=== PATIENT | female | born 1990 | race African-American/Black ===

== ENCOUNTER 2017-03-14 07:15 | Emergency (ER) | payer MEDICAID ==
[2017-03-14 07:27] VITALS: BP 129/78
--- NOTE | 2017-03-14 08:13 | UC ---
Complaint Female HPI - HPI Summary HPI Summary: ONSET OF URINARY BURNING, FREQUENCY AND URGENCY LAST NIGHT. NO NAUSEA, FEVER OR BACK PAIN. DENIES ANY POSSIBILITY OF . PT HAS NEXPLANON. - History Of Current Complaint Chief Complaint: UCGU Stated Complaint: URINARY ISSUE Time Seen by Provider: 03/14/17 07:51 Hx Obtained From: Patient Hx Last Menstrual Period: depo Onset/Duration: Gradual Onset, Lasting Hours, Still Present Timing: Constant Severity Initially: Moderate Severity Currently: Moderate Pain Intensity: 7 Pain Scale Used: 0-10 Numeric Character: Burning Aggravating Factor(s): Urination Alleviating Factor(s): Nothing Associated Signs And Symptoms: Negative: Fever, Back Pain, Vaginal Bleeding/ Discharge, Vaginal Discharge, Nausea, Vomiting(# Of Episodes =), Genital Swelling, Genital Blisters - Allergies/Home Medications Allergies/Adverse Reactions: Allergies Allergy/AdvReac Type Severity Reaction Status Date / Time No Known Allergies Allergy Verified 03/14/17 07:29 PMH/Surg Hx/FS Hx/Imm Hx Previously Healthy: Yes - Surgical History Surgical History: Yes Surgery Procedure, Year, and Place: - Family History Known Family History: Positive: Other - Hx Kidney stones in mother Negative: Hypertension - Social History Alcohol Use: None Substance Use Type: None Smoking Status (MU): Never Smoked Tobacco Review of Systems Constitutional: Negative Respiratory: Negative Cardiovascular: Negative Gastrointestinal: Abdominal Pain Genitourinary: Dysuria, Frequency, Urgency All Other Systems Reviewed And Are Negative: Yes Physical Exam Triage Information Reviewed: Yes Appearance: Well-Appearing, No Pain Distress, Well-Nourished Vital Signs: Initial Vital Signs Temp 97.1 F 03/14/17 07:22 Pulse 87 03/14/17 07:22 Resp 18 03/14/17 07:22 BP 129/78 03/14/17 07:22 Pulse Ox 100 03/14/17 07:22 Vital Signs Reviewed: Yes Eyes: Positive: Conjunctiva Clear ENT: Positive: Hearing grossly normal Neck: Positive: Supple Respiratory: Positive: No respiratory distress, No accessory muscle use Cardiovascular: Positive: Pulses Normal Abdomen Description: Positive: Nontender, Soft. Negative: CVA Tenderness (R), CVA Tenderness (L), Distended, Guarding Musculoskeletal: Positive: No Edema Neurological: Positive: Alert Psychological: Positive: Age Appropriate Behavior Skin: Negative: rashes Diagnostics - Laboratory Diagnostic Studies Completed/Ordered: URINE DIP SP. GR. 1.030, 1+ LEUKS, 3+ BLOOD, 3+ PROTEIN, 1+ BILI Complaint Female Dx - Differential Dx/Diagnosis Provider Diagnoses: UTI Discharge - Discharge Plan Condition: Stable Disposition: HOME Prescriptions: Phenazopyridine TAB* [Pyridium TAB*] 200 mg PO TID #6 tab Sulfamethox/Trimethoprim DS* [Bactrim DS 800/160 TAB*] 1 tab PO BID #10 tab Patient Education Materials: Urinary Tract Infection in Women (ED) Referrals: Estuardo Cobb MD [Primary Care Provider] - If Needed
--- NOTE | 2017-03-15 15:02 | UC ---
Progress - Progress Note Progress Note: urine culture neg final no change Raphael 03/15/2017
== END 2017-03-14 08:22 | disposition home or self-care (01) ==
LOC: UCEAST 07:15
DX: N39.0 Urinary tract infection, site not specified (principal)
CPT/HCPCS: 81003; 87086; 99212; G0463

== ENCOUNTER 2017-12-04 15:53 | Emergency (ER) | payer OTHER ==
[2017-12-04 16:01] VITALS: BP 118/69
--- NOTE | 2017-12-04 16:05 | UC ---
Complaint Female HPI - HPI Summary HPI Summary: 27 yo female presents with feeling vaginal "discomfort" for the last 2 days. She is unable to describe this feeling beyond a "discomfort" that feels external. She had intercourse about 10 days ago, but used condoms. She was on an implanted control up until 1 month ago when she had it removed because she no longer wanted it. Denies fever, chills, abdominal pain, n/v/d/c, dysuria , flank pain, hematuria, vaginal odor/itching/discharge. - History Of Current Complaint Chief Complaint: UCGU Stated Complaint: UTI Time Seen by Provider: 12/04/17 16:05 Hx Obtained From: Patient Hx Last Menstrual Period: 11/07/17 Onset/Duration: Sudden Onset Severity Currently: None Pain Intensity: 0 - Allergies/Home Medications Allergies/Adverse Reactions: Allergies Allergy/AdvReac Type Severity Reaction Status Date / Time No Known Allergies Allergy Verified 12/04/17 16:01 Home Medications: Home Medications NK [No Home Medications Reported] 12/04/17 [History Confirmed 12/04/17] PMH/Surg Hx/FS Hx/Imm Hx - Additional Past Medical History Additional PMH: None - Surgical History Surgical History: Yes Surgery Procedure, Year, and Place: - Family History Known Family History: Positive: Other - Hx Kidney stones in mother Negative: Hypertension - Social History Occupation: Employed Full-time Lives: With Family Alcohol Use: None Substance Use Type: None Smoking Status (MU): Never Smoked Tobacco Review of Systems Constitutional: Negative Skin: Negative Respiratory: Negative Cardiovascular: Negative Gastrointestinal: Negative Genitourinary: Vaginal/Penile Pain Motor: Negative Neurovascular: Negative Psychological: Negative All Other Systems Reviewed And Are Negative: Yes Physical Exam - Summary Physical Exam Summary: GENERAL: NAD. WDWN. No pain distress. SKIN: No rashes, sores, lesions, or open wounds. NECK: Supple. Nontender. No lymphadenopathy. CHEST: CTAB. No r/r/w. No accessory muscle use. Breathing comfortably and in no distress. CV: RRR. Without m/r/g. Pulses intact. Cap refill <2seconds ABDOMEN: Soft. NTTP. No distention or guarding. No CVA tenderness. Bowel sounds present NEURO: Alert. PSYCH: Age appropriate behavior. Triage Information Reviewed: Yes Vital Signs: Initial Vital Signs Temp 98 F 12/04/17 15:58 Pulse 105 12/04/17 15:58 Resp 16 12/04/17 15:58 BP 118/69 12/04/17 15:58 Pulse Ox 98 12/04/17 15:58 Laboratory Tests 12/04/17 12/04/17 16:11 16:18 POC Urine Color Dark yellow POC Urine Clarity Slightly cloudy POC Urine pH 6.0 POC Ur Specif [place] >= 1.030 POC Urine Protein Trace A POC Ur Glucose (UA) Negative POC Urine Ketones Trace A POC Urine Blood Negative POC Urine Nitrite Negative POC Urine Bilirubin Negative POC Urine Urobilinogen 0.2 POC U Leukocyte Esteras Negative POC Ur Test Negative Vital Signs Reviewed: Yes Complaint Female Dx - Course Course Of Treatment: UA and preg were negative. I recommended that she have a pelvic exam, but pt declined and [facility] - Differential Dx/Diagnosis Provider Diagnoses: Vaginal discomfort Discharge - Sign-Out/Discharge Documenting (check all that apply): Patient Departure All imaging exams completed and their final reports reviewed: No Studies - Discharge Plan Condition: Stable Disposition: HOME Referrals: Estuardo Cobb MD [Primary Care Provider] - Additional Instructions: If you develop a fever, shortness of breath, chest pain, new or worsening symptoms - please call your PCP or go to the ED. 1) [facility] or return to the urgent care if your symptoms persist - Billing Disposition and Condition Condition: STABLE Disposition: Home
== END 2017-12-04 16:34 | disposition home or self-care (01) ==
LOC: UCEAST 15:53
DX: R10.2 Pelvic and perineal pain (principal)
CPT/HCPCS: 81003; 84702; 99211; G0463

== ENCOUNTER 2017-12-27 09:41 | Emergency (ER) | payer OTHER ==
[2017-12-27 09:50] VITALS: BP 119/61
--- NOTE | 2017-12-27 09:58 | UC ---
Complaint Female HPI - HPI Summary HPI Summary: 27 y/o female presents to the urgent care c/o frequency and burning on urination for the past 3 weeks. Patient reports she was seen here at the clinic about 3 weeks ago and was diagnosed with a vaginal discomfort and was not prescribed anything. Pt states she has a mild vaginal discharge. Pain is intermittent w/ urination 05/30. Pt denies lower back pain, pelvic pain, Hx of STD's, flank pain, abdominal pain, N/V/D. LMP: 12/08/2017 and does not take any OCP. - History Of Current Complaint Chief Complaint: UCGU Stated Complaint: URINARY COMPLAINT Time Seen by Provider: 12/27/17 09:56 Hx Obtained From: Patient Hx Last Menstrual Period: 12/08/2017 Onset/Duration: Gradual Onset, Lasting Weeks - 3 weeks, Worse Since - 1 week Timing: Intermittent, Lasting Weeks - 3 weeks Severity Initially: Mild Severity Currently: Mild Pain Intensity: 3 Pain Scale Used: 0-10 Numeric Character: Burning Aggravating Factor(s): Urination Associated Signs And Symptoms: Positive: Negative. Negative: Fever, Back Pain, Vaginal Bleeding/Discharge, Vaginal Discharge, Nausea, Vomiting(# Of Episodes =) , Genital Swelling, Genital Blisters - Risk Factors Ectopic Risk Factor: Negative Ovarian Torsion Risk Factor: Negative - Allergies/Home Medications Allergies/Adverse Reactions: Allergies Allergy/AdvReac Type Severity Reaction Status Date / Time No Known Allergies Allergy Verified 12/27/17 09:50 PMH/Surg Hx/FS Hx/Imm Hx Previously Healthy: Yes - Pt denies PMHX - Surgical History Surgical History: Yes Surgery Procedure, Year, and Place: - Family History Known Family History: Negative: Hypertension Family History: Hx Kidney stones in mother - Social History Alcohol Use: None Substance Use Type: None Smoking Status (MU): Never Smoked Tobacco Review of Systems Constitutional: Negative Skin: Negative Eyes: Negative ENT: Negative Respiratory: Negative Cardiovascular: Negative Gastrointestinal: Negative Genitourinary: Dysuria, Frequency, Urgency, Vaginal/Penile Discharge - mild Motor: Negative Neurovascular: Negative Musculoskeletal: Negative Neurological: Negative Psychological: Negative Is Patient Immunocompromised?: No All Other Systems Reviewed And Are Negative: Yes Physical Exam - Summary Physical Exam Summary: Vital signs: reviewed General: well developed, well nourished female sitting in the examining table w /o any acute distress. Head: Normocephalic, no lesions. Eyes: PERRLA, EOM's full, conjunctiva clear, fundi grossly normal. Ears: EAC's clear, TM's normal. Nose: Mucosa normal, no obstruction. Throat: Clear, no exudates, no lesions. Neck: Supple, no masses, no thyromegaly, no bruits. Chest: Lungs clear, no rales, no rhonchi, no wheezes. Heart: RR, no murmurs, no rubs, no gallops. Abdomen: Soft, no tenderness, no masses, BS normal. Pelvic: I was assited by Nurse Tasneem. External genitalia within normal limits. There is no lesions there is no masses noted. Speculum exam: The vaginal jordan are within normal limits w/ normal white vaginal discharge w/ fishy odor, no the lesions or rashes. The cervix is closed with no lesions or masses. There is no CMT's, and no adnexal masses. Sample sent to Lab for G/C and Affirm panel. Rectal: No lesions, no hemorrhoids, Back: Normal curvature, no tenderness. Extremities: FROM, no deformities, no edema, no erythema. Neuro: Physiological, no localizing findings. Skin: Normal, no rashes, no lesions noted. Triage Information Reviewed: Yes Vital Signs: Initial Vital Signs Temp 98.2 F 12/27/17 09:45 Pulse 67 12/27/17 09:45 Resp 18 12/27/17 09:45 BP 119/61 12/27/17 09:45 Pulse Ox 99 12/27/17 09:45 Complaint Female Dx - Course Course Of Treatment: 27 y/o female presents to the urgent care c/o frequency and burning on urination for the past 3 weeks. Patient reports she was seen here at the clinic about 3 weeks ago and was diagnosed with a vaginal discomfort and was not prescribed anything. Pt states she has a mild vaginal discharge. Pain is intermittent w/ urination 05/30. Pt denies lower back pain, pelvic pain, Hx of STD's, flank pain, abdominal pain, N/V/D. LMP: 12/08/2017 and does not take any OCP.Hx obtained. UA ordere: +2 blood and 2+leukoesteraces. Pt with Bacterial vaginosis on pelvic examination. Pt Rx Metronidazole vaginal cream. Pt probably also w/ UTI. Pt Rx Nitrofurantoin PO as directed below for UTI. Pt educated on STD's. Advised to f/u with [facility] for PAP. Specimen were sent to lab and urine culture, Advised she will be notified if any abnormal result from lab. Pt understood and agreed with plan of care. - Differential Dx/Diagnosis Differential Diagnosis/HQI/PQRI: Cervicitis, Pelvic Inflammatory Disease, , Renal Colic, Sexually Transmitted Disease, Ureteral Stone, Urinary Tract Infection Provider Diagnoses: 1- UTI. 2-Dysuria. 3- Bacterial Vaginosis. 4- Screening for STD's Discharge - Sign-Out/Discharge Documenting (check all that apply): Patient Departure - D/c home All imaging exams completed and their final reports reviewed: No Studies - Discharge Plan Condition: Stable Disposition: HOME Prescriptions: metroNIDAZOLE VAGINAL 0.75%* 1 applic VAGINAL BEDTIME #1 lesa Nitrofurantoin Macrocrystals* [Macrodantin 100 mg*] 100 mg PO BID #10 cap Phenazopyridine TAB* [Pyridium 100 mg TAB*] 100 mg PO TID #6 tab Patient Education Materials: Bacterial Vaginosis (ED), Urinary Tract Infection in Women (ED) Referrals: Estuardo Cobb MD [Primary Care Provider] - 3 Days Additional Instructions: 1- Please take Nitrofurantoin 100mg PO x 7 days. Pyridium 100 mg PO TID x 2 days to alleviate urinary symptoms. Increase increase fluid intake. drink cranberry juice. 2- apply Metrogel as directed t alleviates vaginal discharge 3-Urine sent for culture and speciment sent to lab to r/o any abnormality, you will be notified for further treatment. 4-If symptoms do not improve please return to the urgent care or f/u with [facility] or PCP in 3 days for further management - Billing Disposition and Condition Condition: STABLE Disposition: Home
--- NOTE | 2017-12-28 08:29 | UC ---
- Progress Note Progress Note: Vaginal cultures from December 27, 2017 come back for a positive Gardnerella and positive Trichomonas. The patient is on metronidazole vaginal for 5 days and also Macrobid. The treatment for Trichomonas is Flagyl by mouth. Either 2 g as a single dose or 500 mg twice a day for 7 days. Also sexual partners need to be treated. Nursing to call patient and let them know of the findings and that I have sent a prescription for Flagyl 500 mg by mouth twice a day 7 days to her pharmacy. Also the need to inform sexual partners so that they can be evaluated and treated. Discharge - Sign-Out/Discharge Documenting (check all that apply): Patient Departure All imaging exams completed and their final reports reviewed: No Studies - Discharge Plan Condition: Stable Disposition: HOME Prescriptions: metroNIDAZOLE [Flagyl] 500 mg PO BID #14 tablet metroNIDAZOLE VAGINAL 0.75%* 1 applic VAGINAL BEDTIME #1 lesa Nitrofurantoin Macrocrystals* [Macrodantin 100 mg*] 100 mg PO BID #10 cap Phenazopyridine TAB* [Pyridium 100 mg TAB*] 100 mg PO TID #6 tab Patient Education Materials: Bacterial Vaginosis (ED), Urinary Tract Infection in Women (ED) Referrals: Estuardo Cobb MD [Primary Care Provider] - 3 Days Additional Instructions: 1- Please take Nitrofurantoin 100mg PO x 7 days. Pyridium 100 mg PO TID x 2 days to alleviate urinary symptoms. Increase increase fluid intake. drink cranberry juice. 2- apply Metrogel as directed t alleviates vaginal discharge 3-Urine sent for culture and speciment sent to lab to r/o any abnormality, you will be notified for further treatment. 4-If symptoms do not improve please return to the urgent care or f/u with [facility]NA[facility] or PCP in 3 days for further management - Billing Disposition and Condition Condition: STABLE Disposition: Home
--- NOTE | 2017-12-28 16:11 | UC ---
- Progress Note Progress Note: please notify pt that she does not have a UTI stop macrodantin Discharge - Sign-Out/Discharge Documenting (check all that apply): Patient Departure, Post-Discharge Follow Up All imaging exams completed and their final reports reviewed: No Studies - Discharge Plan Condition: Stable Disposition: HOME Prescriptions: metroNIDAZOLE [Flagyl] 500 mg PO BID #14 tablet metroNIDAZOLE VAGINAL 0.75%* 1 applic VAGINAL BEDTIME #1 lesa Nitrofurantoin Macrocrystals* [Macrodantin 100 mg*] 100 mg PO BID #10 cap Phenazopyridine TAB* [Pyridium 100 mg TAB*] 100 mg PO TID #6 tab Patient Education Materials: Bacterial Vaginosis (ED), Urinary Tract Infection in Women (ED) Referrals: Estuardo Cobb MD [Primary Care Provider] - 3 Days Additional Instructions: 1- Please take Nitrofurantoin 100mg PO x 7 days. Pyridium 100 mg PO TID x 2 days to alleviate urinary symptoms. Increase increase fluid intake. drink cranberry juice. 2- apply Metrogel as directed t alleviates vaginal discharge 3-Urine sent for culture and speciment sent to lab to r/o any abnormality, you will be notified for further treatment. 4-If symptoms do not improve please return to the urgent care or f/u with [facility] or PCP in 3 days for further management - Billing Disposition and Condition Condition: STABLE Disposition: Home
== END 2017-12-27 10:45 | disposition home or self-care (01) ==
LOC: UCEAST 09:41
DX: N39.0 Urinary tract infection, site not specified (principal); R30.0 Dysuria; N76.0 Acute vaginitis; Z11.3 Encounter for screening for infections with a predominantly sexual mode of transmission; B96.89 Other specified bacterial agents as the cause of diseases classified elsewhere
CPT/HCPCS: 81003; 84702; 87086; 87480; 87491; 87510; 87591; 87660; 99212; G0463

== ENCOUNTER 2018-01-15 12:33 | Emergency (ER) | payer OTHER ==
--- NOTE | 2018-01-15 15:46 | RAD ---
HISTORY: cp COMPARISONS: December 12, 2014 VIEWS: 4: Frontal dual-energy and lateral views of the chest. FINDINGS: CARDIOMEDIASTINAL SILHOUETTE: The cardiomediastinal silhouette is normal. AIRAM: The airam are normal. PLEURA: The costophrenic angles are sharp. No pleural abnormalities are noted. LUNG PARENCHYMA: The lungs are clear. ABDOMEN: The upper abdomen is clear. There is no subphrenic gas. BONES AND SOFT TISSUES: No bone or soft tissue abnormalities are noted. OTHER: None. IMPRESSION: NO ACTIVE CARDIOPULMONARY DISEASE.
[2018-01-15 16:17] LABS: ABS Basophils 0 10^3/ul (0-0.2); ABS Eosinophils 0.2 10^3/ul (0-0.6); ABS Lymphocytes 1.4 10^3/ul (1.0-4.8); ABS Monocytes 0.4 10^3/ul (0-0.8); ABS Neutrophils 5.1 10^3/ul (1.5-7.7); ABS Nucleated RBC 0 10^3/ul; Eosinophil % 2.1 % (0-6); Hematocrit 38 % (35-47); Hemoglobin 12.6 g/dl (12.0-16.0); Lymphocyte % 19.8 % (25-47); Mean Corpuscular HGB Conc 33 g/dl (31-36); Mean Corpuscular Hemoglobin 31 pg (27-31); Mean Corpuscular Volume 94 fL (80-97); Mean Platelet Volume 9.1 um3 (7.4-10.4); Nucleated Red Blood Cells % 0.1; Platelet Count 240 10^3/ul (150-450); Red Blood Count 4.06 10^6/ul (4.00-5.40); Red Cell Distribution Width 13 % (10.5-15); White Blood Count 7.2 10^3/ul (3.5-10.8)
[2018-01-15 16:41] LABS: INR 1.05 (0.77-1.02)
[2018-01-15] MEDS ORDERED: Ibuprofen TAB* 400 MG PO ONE (16:51)
[2018-01-15 17:05] VITALS: BP 150/70
--- NOTE | 2018-01-15 17:11 | ED ---
HPI Chest Pain - HPI Summary HPI Summary: Patient is a 27 y/o F w/ c/o left sided chest pain with radiation to back onsetting last night. She notes pain is aggravated by breathing. Patient states she does not take blood thinners, denies alcohol/drug usage and smoking. No other PMHx is noted. On triage, pain is rated 10/10, breaths are noted to aggravate pain, nothing is reported to alleviate Sx. Home medications and allergies are reviewed. - History of Current Complaint Chief Complaint: EDChestWallPain Time Seen by Provider: 01/15/18 15:54 Hx Obtained From: Patient Hx Last Menstrual Period: 12/08/2017 Onset/Duration: Started Days Ago - onset last night, Traumatic Timing: Constant, Lasting Days - onset last night Current Severity: Severe - 10/10 Pain Intensity: 10 Pain Scale Used: 0-10 Numeric - 10/10 Chest Pain Location: Discrete at: - left side Chest Pain Radiates: Yes Chest Pain Radiates To:: Back Aggravating Factor(s): Other: - breaths Alleviating Factor(s): Nothing Associated Signs and Symptoms: Positive: Chest Pain - Allergy/Home Medications Allergies/Adverse Reactions: Allergies Allergy/AdvReac Type Severity Reaction Status Date / Time No Known Allergies Allergy Verified 01/15/18 13:32 PMH/Surg Hx/FS Hx/Imm Hx Endocrine/Hematology History: Denies: Hx Diabetes, Hx Thyroid Disease Cardiovascular History: Denies: Hx Hypertension, Other Cardiovascular Problems/Disorders Respiratory History: Denies: Hx Asthma, Hx Chronic Obstructive Pulmonary Disease (COPD) GI History: Denies: Hx Ulcer - Surgical History Surgery Procedure, Year, and Place: Infectious Disease History: No Infectious Disease History: Denies: Hx Clostridium Difficile, Hx Hepatitis, Hx Human Immunodeficiency Virus (HIV), Hx of Known/Suspected MRSA, Hx Shingles, Hx Tuberculosis, Hx Known/ Suspected VRE, Hx Known/Suspected VRSA, History Other Infectious Disease, Traveled Outside the [place] in Last 30 Days - Family History Known Family History: Positive: Other - Hx Kidney stones in mother Negative: Hypertension Family History: Hx Kidney stones in mother - Social History Alcohol Use: None Substance Use Type: Reports: None Smoking Status (MU): Never Smoked Tobacco Review of Systems Negative: Fever - on vitals, temp is 98.9 F Positive: Chest Pain All Other Systems Reviewed And Are Negative: Yes Physical Exam - Summary Physical Exam Summary: Appearance: Well appearing, no pain distress Skin: warm, dry, reflects adequate perfusion Head/face: normal Eyes: EOMI, JULIA ENT: normal Neck: supple, non-tender Respiratory: CTA, breath sounds present Cardiovascular: RRR, pulses symmetrical Abdomen: non-tender, soft Bowel: present Musculoskeletal: tenderness over left chest, strength/ROM intact Neuro: normal, sensory motor intact, A&Ox3 Triage Information Reviewed: Yes Vital Signs On Initial Exam: Initial Vitals Temp Pulse Resp BP Pulse Ox 98.9 F 78 16 106/61 100 01/15/18 13:29 01/15/18 13:29 01/15/18 13:29 01/15/18 13:29 01/15/18 13:29 Vital Signs Reviewed: Yes Diagnostics - Vital Signs Vital Signs Temp Pulse Resp BP Pulse Ox 01/15/18 13:29 98.9 F 78 16 106/61 100 - Laboratory Lab Results: Lab Results 01/15/18 01/15/18 01/15/18 Range/Units 16:09 16:09 16:09 WBC 7.2 (3.5-10.8) 10^3/ul RBC 4.06 (4.00-5.40) 10^6/ul Hgb 12.6 (12.0-16.0) g/dl Hct 38 (35-47) % MCV 94 (80-97) fL MCH 31 (27-31) pg MCHC 33 (31-36) g/dl RDW 13 (10.5-15) % Plt Count 240 (150-450) 10^3/ul MPV 9.1 (7.4-10.4) um3 Neut % (Auto) 71.5 (38-83) % Lymph % (Auto) 19.8 L (25-47) % Tift % (Auto) 6.1 (0-7) % Eos % (Auto) 2.1 (0-6) % Baso % (Auto) 0.5 (0-2) % Absolute Neuts (auto) 5.1 (1.5-7.7) 10^3/ul Absolute Lymphs (auto) 1.4 (1.0-4.8) 10^3/ul Absolute Monos (auto) 0.4 (0-0.8) 10^3/ul Absolute Eos (auto) 0.2 (0-0.6) 10^3/ul Absolute Basos (auto) 0 (0-0.2) 10^3/ul Absolute Nucleated RBC 0 10^3/ul Nucleated RBC % 0.1 INR (Anticoag Therapy) 1.05 H (0.77-1.02) APTT 31.0 (26.0-36.3) seconds D-Dimer, Quantitative < 200 (Less Than 230) ng/mL Sodium 135 (135-145) mmol/L Potassium 3.8 (3.5-5.0) mmol/L Chloride 102 (101-111) mmol/L Carbon Dioxide 27 (22-32) mmol/L Anion Gap 6 (2-11) mmol/L BUN 6 (6-24) mg/dL Creatinine 0.89 (0.51-0.95) mg/dL Est GFR ( Amer) 90.7 (>60) Est GFR (Non-Af Amer) 75.0 (>60) BUN/Creatinine Ratio 6.7 L (8-20) Glucose 120 H (70-100) mg/dL Calcium 9.2 (8.6-10.3) mg/dL Total Bilirubin 0.60 (0.2-1.0) mg/dL AST 16 (13-39) U/L ALT 13 (7-52) U/L Alkaline Phosphatase 77 (34-104) U/L Troponin I 0.00 (<0.04) ng/mL Total Protein 8.0 (6.4-8.9) g/dL Albumin 4.0 (3.2-5.2) g/dL Globulin 4.0 (2-4) g/dL Albumin/Globulin Ratio 1.0 (1-3) Beta HCG, Quant < 0.60 mIU/mL Result Diagrams: 01/15/18 16:09 01/15/18 16:09 Lab Statement: Any lab studies that have been ordered have been reviewed, and results considered in the medical decision making process. - Radiology CXR Radiology Interpretation Completed By: Radiologist Summary of Radiographic Findings: CXR showed no active cardiopulmonary disease. This report was reviewed by ED physician. - EKG 1609 Cardiac Rate: NL - rate of 76 BPM EKG Rhythm: Sinus Rhythm Summary of EKG Findings: no acute changes Re-Evaluation - Re-Evaluation First Eval Re-Evaluation Time: 18:06 Comment: Results of labs and tests were discussed, patient is agreeable with discharge. Chest Pain Course/Dx - Course Course Of Treatment: Patient is a 27 y/o F w/ c/o left sided chest pain with radiation to back onsetting last night. She notes pain is aggravated by breathing. Patient states she does not take blood thinners, denies alcohol/drug usage and smoking. No other PMHx is noted. On physical exam, patient is noted to have left sided chest tenderness. During ED course, patient received Motrin 800 mg. CXR showed no active cardiopulmonary disease. EKG showed sinus rhythm with rate of 76 BPM. Bloodwork obtained. Results of labs and tests were discussed, patient is agreeable with discharge. Dx of chest wall pain. - Chest Pain Differential Diagnosis/HQI/PQRI: Acute NE, Chest Wall, Lower Respiratory Infection, Pulmonary Embolism - Diagnoses Provider Diagnoses: Chest wall pain Discharge - Sign-Out/Discharge Documenting (check all that apply): Patient Departure - discharge - Discharge Plan Condition: Stable Disposition: HOME Prescriptions: Ibuprofen TAB* [Motrin TAB* 600 MG] 600 mg PO Q8H PRN #20 tab MDD 3 PRN Reason: Pain Patient Education Materials: Chest Wall Pain (ED) Referrals: Estuardo Cobb MD [Primary Care Provider] - 3 Days Additional Instructions: RETURN TO ED FOR ANY NEW OR WORSENING SYMPTOMS. FOLLOW UP WITH PRIMARY CARE PHYSICIAN IN THREE DAYS. - Billing Disposition and Condition Condition: STABLE Disposition: Home - Attestation Statements Document Initiated by Eusebio: Yes Documenting Scribe: Arnulfo Verduzco Provider For Whom Eusebio is Documenting (Include Credential): Go Coffman MD Scribe Attestation: Arnulfo Collins , scribed for Go Coffman MD on 01/15/18 at 1751. Scribe Documentation Reviewed: Yes Provider Attestation: The documentation as recorded by the Arnulfo lacey accurately reflects the service I personally performed and the decisions made by me, Go Coffman MD
== END 2018-01-15 17:37 | disposition home or self-care (01) ==
LOC: ED 12:33
DX: R07.89 Other chest pain (principal); Z84.1 Family history of disorders of kidney and ureter
CPT/HCPCS: 36415; 71046; 80053; 84484; 84702; 85025; 85379; 85610; 85730; 93005; 99283; A9270-GY

== ENCOUNTER 2018-02-25 09:40 | Emergency (ER) | payer OTHER ==
--- OUTSIDE RECORDS SUMMARY | 2018-02-25 09:45 | XMS REPORT | Continuity of Care Document ---
:1990 External Reference #:[id number] Author Name Shikha Woodard Care Team Providers Name Role Phone Estuardo Cobb MD Primary Care Physician Unavailable Payers Type Date Identification Numbers Payment Provider Subscriber Effective: Policy Number: [id number] [employer] Krystle Breaux 2013 Medicaid PayID: [id number] [address] [address] [place] [address] Advance Directives Description No Information Available Problems Date Description Provider Status Onset: 02/01/2014 Morbid obesity Daria Katz M.D. Active Onset: 02/01/2014 Impairment level: low vision of both Daria Katz M.D. 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 Tobacco Use Start: Unknown Never Smoked Cigarettes Smoking Status Reviewed: 02/04/18 Never Smoked Cigarettes ETOH Use Denies alcohol use Tobacco Use Start: Unknown Patient has never smoked Recreational Drug Use Denies Drug Use Exercise Type/Frequency Exercises regularly joined [employer] last December Allergies, Adverse Reactions, Alerts Description No Known Drug Allergies Medications Medication Date Status Form Strength Qnty SIG Indications Ordering Provider Phentermine 04/14/ Active Capsules 15mg 30caps 1 tab po qd E66.01 Josh HCL 2017 x14 days, 5 Tobias POLYSOMNOGRAPHY TECHNOLOGIST days off, then 1 tab po qd x14 days, then 5 days off, repeat Proair HFA 04/14/ Active Aerosol 108(90Base 1units 1 puff J45.40 2016 ) mcg/Act every 4 MD Jamir hours as needed for chest tightness or wheezing Montelukast 04/14/ Hx Tablets 10mg 90tabs 1 by mouth J45.40 Josh Sodium 2017 - every day [place], POLYSOMNOGRAPHY TECHNOLOGIST 2017 Lotrisone 02/14/ Hx Cream 1-0.05% 45gm apply to Daria 2013 - area 2x per Sterling, M.D. 2017 Tylenol With / Hx Tablets 300-30mg 15tabs 1 tab by Unknown Codeine #3 0000 - mouth every to 6 2016 hours as needed Nexplanon / Hx Implant 68mg 2013 Unknown 0000 - 2017 Immunizations Description No Information Available Vital Signs Date Vital Result Comment 02/04/2018 10:50am Height 60.25 inches 5'0.25" Weight 263.38 lb Heart Rate 74 /min BP Systolic 110 mmHg BP Diastolic 98 mmHg Body Temperature 98.1 F O2 % BldC Oximetry 99 % BMI (Body Mass Index) 51.0 kg/m2 04/14/2016 1:09pm Height 60.25 inches 5'0.25" Weight 270.00 lb Heart Rate 82 /min BP Systolic Sitting 104 mmHg BP Diastolic Sitting 76 mmHg Body Temperature 98.1 F O2 % BldC Oximetry 97 % BMI (Body Mass Index) 52.3 kg/m2 03/14/2016 1:54pm Height 60.25 inches 5'0.25" Weight 271.00 lb Heart Rate 80 /min BP Systolic Sitting 128 mmHg BP Diastolic Sitting 64 mmHg Body Temperature 98.0 F O2 % BldC Oximetry 100 % BMI (Body Mass Index) 52.5 kg/m2 01/24/2014 2:10pm Height 60 inches 5'0" Weight 257.00 lb Heart Rate 76 /min BP Systolic Sitting 122 mmHg BP Diastolic Sitting 84 mmHg BMI (Body Mass Index) 50.2 kg/m2 Results Test Date Facility Test Result H/L Range Note GC/Chlamydia 02/04/2018 [facility] [place] Chlamydia Negative Negative 1 Amplified Rna [address] [place] [address] [phone] Neisseria gonorrhoeae (GC) Rna Negative Negative Laboratory 02/04/2018 [facility] [place] Trichomonas Negative Negative 2 test finding [address] [place] [address] [phone] Laboratory 02/04/2018 [facility] [place] Gardnerella/Yea SEE RESULT 3, [address]: [place] [address] [phone] Laboratory 01/15/2018 [facility] [place] Troponin-I 0.00 ng/mL <0.04 test finding (TnI) [place] [address] [phone] HCG < 0.60 mIU/mL 5 Comp Metabolic Panel 01/15/2018 [facility] [place] Sodium 135 mmol/L N 135-145 [place] [address] [phone] Potassium 3.8 mmol/L N 3.5-5.0 Chloride 102 mmol/L N 101-111 Co2 Carbon Dioxide 27 mmol/L N 22-32 Anion Gap 6 mmol/L N 2-11 Glucose 120 mg/dL High 70-100 Blood Urea Nitrogen 6 mg/dL N 6-24 Creatinine 0.89 mg/dL N 0.51-0.95 BUN/Creatinine Ratio 6.7 Low 8-20 Calcium 9.2 mg/dL N 8.6-10.3 Total Protein 8.0 g/dL N 6.4-8.9 Albumin 4.0 g/dL N 3.2-5.2 Globulin 4.0 g/dL N 2-4 Albumin/Globulin Ratio 1.0 N 1-3 Total Bilirubin 0.60 mg/dL N 0.2-1.0 Alkaline Phosphatase 77 U/L N 34-104 Alt 13 U/L N 7-52 Ast 16 U/L N 13-39 Egfr Non- 75.0 >60 Egfr 90.7 >60 6 Inr/Protime 01/15/2018 [facility] [place] Inr 1.05 High 0.77-1.02 [place] [address] [phone] Laboratory test 01/15/2018 [facility] [place] Partial 31.0 N 26.0- 36.3 [place] [address] Time PTT [phone] D Dimer Quantitative < 200 ng/mL N Less Than 230 7 CBC Auto Diff 01/15/2018 [facility] [place] White Blood 7.2 10^3/uL N 3.5-10.8 [place] [address] [phone] Red Blood Count 4.06 10^6/uL N 4.00-5.40 Hemoglobin 12.6 g/dL N 12.0-16.0 Hematocrit 38 % N 35-47 Mean Corpuscular Volume 94 fL N 80-97 Mean Corpuscular Hemoglobin 31 pg N 27-31 Mean Corpuscular HGB Conc 33 g/dL N 31-36 Red Cell Distribution Width 13 % N 10.5-15 Platelet Count 240 10^3/uL N 150-450 Mean Platelet Volume 9.1 um3 N 7.4-10.4 Abs Neutrophils 5.1 10^3/uL N 1.5-7.7 Abs Lymphocytes 1.4 10^3/uL N 1.0-4.8 Abs Monocytes 0.4 10^3/uL N 0-0.8 Abs Eosinophils 0.2 10^3/uL N 0-0.6 Abs Basophils 0 10^3/uL N 0-0.2 Abs Nucleated RBC 0 10^3/uL Granulocyte % 71.5 % N 38-83 Lymphocyte % 19.8 % Low 25-47 Monocyte % 6.1 % N 0-7 Eosinophil % 2.1 % N 0-6 Basophil % 0.5 % N 0-2 Nucleated Red Blood Cells % 0.1 Poc Urinalysis 12/27/2017 [facility] [place] Poc Glucose, Negative Negative [address] [place] [address] [phone] Poc Bilirubin, Urine Negative Negative Poc Ketone, Urine Negative Negative Poc Specific [place], Urine 1.020 N 1.010-1.030 Poc Blood, Urine 2+ Abnormal Negative Poc pH, Urine 7.0 N 5-9 Poc Protein, Urine Trace Abnormal Negative Poc Urobilinogen, Urine 0.2 Negative Poc Nitrite, Urine Negative Negative Poc Leukocytes, Urine 2+ Abnormal Negative Poc Color, Urine Yellow Poc Clarity, Urine Cloudy 8 Laboratory test 12/27/2017 [facility] [place] Poc , Negative Negative [address] [place] [address] [phone] Urine Culture 12/27/2017 [facility] [place] Urine Culture SEE RESULT 10, And [address] BELOW 11 [place] [address] [phone] GC/Chlamydia 12/27/2017 [facility] [place] Chlamydia Negative Negative 12 Amplified Rna [address] [place] [address] Rna [phone] Neisseria gonorrhoeae (GC) Rna Negative Negative Laboratory 12/27/2017 [facility] [place] Gardnerella/Yeast: SEE RESULT 13, test finding [address] Vaginal Dna BELOW 14 [place] [address] [phone] Laboratory 12/04/2017 [facility] [place] Poc , Urine Negative Negative 15 test finding [address] [place] [address] [phone] Poc 12/04/2017 [facility] [place] Poc Glucose, Urine Negative Negative Urinalysis [address] [place] [address] [phone] Poc Bilirubin, Urine Negative Negative Poc Ketone, Urine Trace Abnormal Negative Poc Specific [place], Urine >=1.030 N 1.010-1.030 Poc Blood, Urine Negative Negative Poc pH, Urine 6.0 N 5-9 Poc Protein, Urine Trace Abnormal Negative Poc Urobilinogen, Urine 0.2 Negative Poc Nitrite, Urine Negative Negative Poc Leukocytes, Urine Negative Negative Poc Color, Urine Dark yellow Poc Clarity, Urine Slightly Cloudy 16 Urine Culture And 03/14/2017 [facility] [place] Urine SEE RESULT 17 , [address] [place] [address] [phone] Poc Urinalysis 03/14/2017 [facility] [place] Poc Negative Negative [address] Glucose, [place] [address] Urine [phone] Poc Bilirubin, Urine 1+ Abnormal Negative Poc Ketone, Urine Negative Negative Poc Specific [place], Urine >=1.030 N 1.010-1.030 Poc Blood, Urine 3+ Abnormal Negative Poc pH, Urine 5.5 N 5-9 Poc Protein, Urine 3+ Abnormal Negative Poc Urobilinogen, Urine 0.2 Negative Poc Nitrite, Urine Negative Negative Poc Leukocytes, Urine 1+ Abnormal Negative Poc Color, Urine Yellow Poc Clarity, Urine Cloudy 19 Laboratory test 03/25/2016 [facility] [place] D Dimer 247 ng/mL High Less [address] Quantitative Than 230 [place], [place] [id number] [phone] Basic Metabolic 03/25/2016 [facility] [place] Sodium 136 N 133-[address] mmol/[place] [address] [phone] Potassium 4.1 mmol/L N 3.5-5.0 Chloride 104 mmol/L N 101-111 Co2 Carbon Dioxide 27 mmol/L N 22-32 Anion Gap 5 mmol/L N 2-11 Glucose 107 mg/dL High 70-100 Blood Urea Nitrogen 7 mg/dL N 6-24 Creatinine 0.81 mg/dL N 0.51-0.95 BUN/Creatinine Ratio 8.6 N 8-20 Calcium 8.4 mg/dL Low 8.6-10.3 Egfr Non- 84.8 N >60 Egfr 109.1 N >60 21 Laboratory test 03/25/2016 [facility] [place] TSH (Thyroid 1.78 mcIU/mL N 0.34-5.[address] Stim [place]orm) [place] [address] [phone] Cortisol 9.39 ?g/dL N 22 CBC Auto Diff 03/25/2016 [facility] [place] White Blood 6.1 10^3/uL N 3.5-10.[address] [place] [address] [phone] Red Blood Count 4.10 10^6/uL N 4.0-5.4 Hemoglobin 12.4 g/dL N 12.0-16.0 Hematocrit 38 % N 35-47 Mean Corpuscular Volume 92 fL N 80-97 Mean Corpuscular Hemoglobin 30 pg N 27-31 Mean Corpuscular HGB Conc 33 g/dL N 31-36 Red Cell Distribution Width 13 % N 10.5-15 Platelet Count 199 10^3/uL N 150-450 Mean Platelet Volume 10 um3 N 7.4-10.4 Abs Neutrophils 3.8 10^3/uL N 1.5-7.7 Abs Lymphocytes 1.8 10^3/uL N 1.0-4.8 Abs Monocytes 0.3 10^3/uL N 0-0.8 Abs Eosinophils 0.1 10^3/uL N 0-0.6 Abs Basophils 0 10^3/uL N 0-0.2 Abs Nucleated RBC 0 10^3/uL N Granulocyte % 62.8 % N 38-83 Lymphocyte % 29.6 % N 25-47 Monocyte % 4.8 % N 1-9 Eosinophil % 2.4 % N 0-6 Basophil % 0.4 % N 0-2 Nucleated Red Blood Cells % 0 N Urinalysis Profile 03/21/2016 [facility] [place] Urine Color Yellow N [address] [place] [address] [phone] Urine Appearance Cloudy N Urine Specific [place] 1.026 N 1.010-1.030 Urine pH 5.0 N 5-9 Urine Urobilinogen Negative N Negative Urine Ketones Negative N Negative Urine Protein Negative N Negative Urine Leukocytes Negative N Negative Urine Blood Negative N Negative Urine Nitrite Negative N Negative Urine Bilirubin Negative N Negative Urine Glucose Negative N Negative CBC Auto Diff 03/21/2016 [facility] [place] White Blood 8.1 10^3/uL N 3.5-10.[address] [place] [address] [phone] Red Blood Count 4.02 10^6/uL N 4.0-5.4 Hemoglobin 12.3 g/dL N 12.0-16.0 Hematocrit 37 % N 35-47 Mean Corpuscular Volume 92 fL N 80-97 Mean Corpuscular Hemoglobin 31 pg N 27-31 Mean Corpuscular HGB Conc 33 g/dL N 31-36 Red Cell Distribution Width 13 % N 10.5-15 Platelet Count 186 10^3/uL N 150-450 Mean Platelet Volume 10 um3 N 7.4-10.4 Abs Neutrophils 5.2 10^3/uL N 1.5-7.7 Abs Lymphocytes 2.2 10^3/uL N 1.0-4.8 Abs Monocytes 0.4 10^3/uL N 0-0.8 Abs Eosinophils 0.2 10^3/uL N 0-0.6 Abs Basophils 0.1 10^3/uL N 0-0.2 Abs Nucleated RBC 0 10^3/uL N Granulocyte % 64.5 % N 38-83 Lymphocyte % 26.8 % N 25-47 Monocyte % 5.5 % N 1-9 Eosinophil % 2.5 % N 0-6 Basophil % 0.7 % N 0-2 Nucleated Red Blood Cells % 0 N Comp Metabolic Panel 03/21/2016 [facility] [place] Sodium 132 mmol/L Low 133-[address] [place] [address] [phone] Chloride 105 mmol/L N 101-111 Co2 Carbon Dioxide 22 mmol/L N 22-32 Glucose 98 mg/dL N 70-100 23 Blood Urea Nitrogen 10 mg/dL N 6-24 24 Creatinine 0.73 mg/dL N 0.51-0.95 25 BUN/Creatinine Ratio 13.7 N 8-20 Calcium 8.3 mg/dL Low 8.6-10.3 26 Total Protein 7.6 g/dL N 6.4-8.9 27 Albumin 3.6 g/dL N 3.2-5.2 28 Globulin 4.0 g/dL N 2-4 Albumin/Globulin Ratio 0.9 Low 1-3 Total Bilirubin 0.40 mg/dL N 0.2-1.0 29 Alkaline Phosphatase 74 U/L N 34-104 30 Alt 10 U/L N 7-52 31 Egfr Non- 95.6 N >60 Egfr 123.0 N >60 32 Potassium TNP mmol/L N 3.5-5.0 Anion Gap TNP mmol/L N 2-11 Ast TNP U/L N 13-39 Lipid Profile 03/14/2016 [facility] [place] Triglycerides 59 mg/dL N 33 (Trig/Chol/HDL) [address] [place] [address] [phone] Cholesterol 144 mg/dL N 34 HDL Cholesterol 48.9 mg/dL N 35 LDL Cholesterol 83 mg/dL N 36 Laboratory test 03/14/2016 [facility] [place] Glucose 86 mg/dL N 70- 100 37 finding [address] [place] [address] [phone] CBC Auto Diff 05/23/2014 [facility] [place] White Blood 8.3 10^3/uL N 4.8-10.[address] [place] [address] [phone] Red Blood Count 4.17 10^6/uL N 4.0-5.4 Hemoglobin 13.0 g/dL N 12.0-16.0 Hematocrit 39 % N 35-47 Mean Corpuscular Volume 94 fL N 80-97 Mean Corpuscular Hemoglobin 31 pg N 27-31 Mean Corpuscular HGB Conc 33 g/dL N 31-36 Red Cell Distribution Width 13 % N 10.5-15 Platelet Count 229 10^3/uL N 150-450 Mean Platelet Volume 10 um3 N 7.4-10.4 Abs Neutrophils 6.6 10^3/uL N 1.5-7.7 Abs Lymphocytes 1.2 10^3/uL N 1.0-4.8 Abs Monocytes 0.4 10^3/uL N 0-0.8 Abs Eosinophils 0 10^3/uL N 0-0.6 Abs Basophils 0.1 10^3/uL N 0-0.2 Abs Nucleated RBC 0.01 10^3/uL N Granulocyte % 79.8 % N 38-83 Lymphocyte % 14.4 % Low 25-47 Monocyte % 4.6 % N 1-9 Eosinophil % 0.5 % N 0-6 Basophil % 0.7 % N 0-2 Nucleated Red Blood Cells % 0.1 N Comp Metabolic Panel 05/23/2014 [facility] [place] Sodium 133 mmol/L N 133-145 [address] [place] [address] [phone] Potassium TNP mmol/L N 3.5-5.0 38 Chloride 106 mmol/L N 101-111 Co2 Carbon Dioxide 21 mmol/L Low 22-32 Anion Gap TNP mmol/L N 2-11 Glucose 106 mg/dL High 70-100 Blood Urea Nitrogen 8 mg/dL N 6-24 Creatinine 0.84 mg/dL N 0.51-0.95 BUN/Creatinine Ratio 9.5 N 8-20 Calcium 9.0 mg/dL N 8.6-10.3 Total Protein 8.2 g/dL N 6.4-8.9 Albumin 4.0 g/dL N 3.2-5.2 Globulin 4.2 g/dL High 2-4 Albumin/Globulin Ratio 1.0 N 1-3 Total Bilirubin 0.40 mg/dL N 0.2-1.0 Alkaline Phosphatase 74 U/L N 34-104 Alt 16 U/L N 7-52 Ast TNP U/L N 13-39 39 Egfr Non- 82.0 N >60 Egfr 105.4 N >60 40 Laboratory test finding 05/23/2014 [facility] [place] Lipase 23 U/L N 11.0-82.0 [address] [place] [address] [phone] C Reactive Protein 12.78 mg/L High < 5.00 41 Urinalysis Profile 05/23/2014 [facility] [place] Urine Color Dania N [address] [place] [address] [phone] Urine Appearance Turbid N Urine Specific [place] 1.024 N 1.010-1.030 Urine pH 5.0 N 5-9 Urine Urobilinogen Negative N Negative Urine Ketones Negative N Negative Urine Protein Negative N Negative Urine Leukocytes Negative N Negative Urine Blood Negative N Negative Urine Nitrite Negative N Negative Urine Bilirubin Negative N Negative Urine Glucose Negative N Negative Laboratory test 01/24/2014 [facility] [place] TSH (Thyroid 1.36 IU/mL N 0.34-5.[address] Stimulating [place], [place] [address] [place] [address]) [phone] Free T4 0.95 ng/mL N 0.61-1.12 1 [id number] 2 [id number] GC/Chlamydia Source?: Endocervical Trichomonas Source: Endocervical 3 [id number] SEE RESULT BELOW Name: KRYSTLE BREAUX Harini : [address]: Naty Bowie MD Acct: [id number] Unit: [id number] AGE: 27 Location: [facility] Re02/04/18 SEX: F Status: REG REF SPEC: [id number] MUKESH: 02/04/188 [facility] DR: Naty Bowie MD REQ: [id number] RECD: 02/04/18-1222 STATUS: COMP _ SOURCE: VAGINAL SPDESC: ORDERED: Marii,Yeast DNA COMMENTS: [id number] Would you like to order Trichomonas Vaginalis testing? Yes Procedure Result Reported Site Gardnerella/Yeast: Vaginal DNA Final 02/04/18- 1619 ML Organism 1 POSITIVE GARDNERELLA Organism 2 Negative Becca The presence of G. vaginalis, although suggestive, is not diagnostic for bacterial vaginosis. Results should be interpreted in conjuction with other clinical and laboratory data available. Women with vaginal discharge should be evaluated for risk factors of cervicitis and pelvic inflammatory disease, toxic shock syndrome (S.aureus), and if present, evaluated for organisms not included in this assay such as N. gonorrhoeae, C. trachomatis, Mobiluncus, Mycoplasma and/or Prevotella. Mixed infections may occur. The performance of this test on patient specimens collected during or immediately after antimicrobial therapy is unknown. The presence or absence of Becca species, or G. vaginalis cannot be used as a test for therapeutic success or failure. * ML - Main Lab . END OF REPORT DEPARTMENT OF PATHOLOGY, [address] [place] [address] Montana Gu M.D. Director [facility] # [id number] 5 <5.0 Negative 5.0 - 25.0 Indeterminate (Repeat testing recommended after 72 hours) >25.0 Positive Perimenopausal women can display HCG levels of up to 20 mIU/mL 6 Because ethnic data is not always readily available, this report includes an eGFR for both -Americans and non- Americans. The National Kidney Disease Education Program (NKDEP) does not endorse the use of the MDRD equation for patients that are not between the ages of 18 and 70, are , have extremes of body size, muscle mass, or nutritional status, or are non- or non-. According to the National Kidney Foundation, irrespective of diagnosis, the stage of the disease is based on the level of kidney function: Stage Description GFR(mL/min/1.73 m(2)) 1 Kidney damage with normal or decreased GFR 90 2 Kidney damage with mild decrease in GFR 60-89 3 Moderate decrease in GFR 30-59 4 Severe decrease in GFR 15-29 5 Kidney failure <15 (or dialysis) 7 Please note: The following may produce a false positive D Dimer test: - Rheumatoid factor greater than 60 IU/ml - Plasma hemoglobin greater than 0.05 gm/dl - Bilirubin greater than 50 mg/dl - Lipids greater than 1000 mg/dl - FDP greater than 20 ug/ml 8 [employer] Person: [id number] 9 [employer] Person: [id number] If is still suspected, please repeat test after 48 to 72 hours. 10 [id number] 11 SEE RESULT BELOW Name: BREAUXKRYSTLE : [address]: Sima Uribe MD Acct: [id number] Unit: [id number] AGE: 27 Location: [facility] Re12/27/17 SEX: F Status: DEP ER SPEC: [id number] MUKESH: 12/27/17-5 [facility] DR: Renita MCCRAY REQ: [id number] RECD: 12/27/17 STATUS: CAMPOS VIRAMONTES DR: Sima Cobb MD _ SOURCE: URINE SPDESC: ORDERED: Urine Culture COMMENTS: [id number] Procedure Result Reported Site Urine Culture Final 12/28/17- 1204 ML No growth of clinically significant organisms * ML - Main Lab . END OF REPORT DEPARTMENT OF PATHOLOGY, [address] [place] [address] Montana Gu M.D. Director [facility] # [id number] 12 [id number] 13 Would you like to order Trichomonas Vaginalis RNA testing? Y [id number] 14 SEE RESULT BELOW Name: KRYSTLE BREAUX Harini : [address]: Sima Uribe MD Acct: [id number] Unit: [id number] AGE: 27 Location: [facility] Re12/27/17 SEX: F Status: DEP ER SPEC: [id number] MUKESH: 12/27/171025 [facility] DR: Renita MCCRAY REQ: [id number] RECD: 12/27/177855 STATUS: CAMPOS VIRAMONTES DR: Sima Cobb MD _ SOURCE: VAGINAL SPDESC: ORDERED: Marii,Yeast DNA, Trich DNA COMMENTS: Would you like to order Trichomonas Vaginalis RNA testing? Y [id number] Procedure Result Reported Site Gardnerella/Yeast: Vaginal DNA Final 12/27/17- 1505 ML Organism 1 POSITIVE GARDNERELLA Organism 2 Negative Becca The presence of G. vaginalis, although suggestive, is not diagnostic for bacterial vaginosis. Results should be interpreted in conjuction with other clinical and laboratory data available. Women with vaginal discharge should be evaluated for risk factors of cervicitis and pelvic inflammatory disease, toxic shock syndrome (S.aureus), and if present, evaluated for organisms not included in this assay such as N. gonorrhoeae, C. trachomatis, Mobiluncus, Mycoplasma and/or Prevotella. Mixed infections may occur. The performance of this test on patient specimens collected during or immediately after antimicrobial therapy is unknown. The presence or absence of Becca species, or G. vaginalis cannot be used as a test for therapeutic success or failure. Trichomonas: Vaginal DNA Probe Final 12/27/17- 1507 ML Organism 1 POSITIVE TRICHOMONAS CONTINUED ON NEXT PAGE DEPARTMENT OF PATHOLOGY, [address] [place] [address] Montana Gu M.D. Director [facility] # [id number] Patient: BREAUXKRYSTLE N [id number] (Continued) Specimen: [id number] Collected: 12/27/17-1025 Received: 12/27/17135 (Continued) Procedure Result Reported Site Trichomonas: Vaginal DNA Probe Final (continued) 12/27/17 150 The presence or absence of T. vaginalis cannot be used as a test for therapeutic success or failure. * ML - Main Lab . END OF REPORT DEPARTMENT OF PATHOLOGY, [address] [place] [address] Montana Gu M.D. Director [facility] # [id number] 15 Ground [employer] Person: [id number] If is still suspected, please repeat test after 48 to 72 hours. 16 Ground [employer] Person: [id number] 18 SEE RESULT BELOW Name: KRYSTLE BREAUX Harini : [address]: Sima Uribe MD Acct: [id number] Unit: [id number] AGE: 26 Location: [facility] Re03/14/17 SEX: F Status: DEP ER SPEC: [id number] MUKESH: 03/14/17-04 [facility] DR: Sima Uribe MD REQ: [id number] RECD: 03/14/17 STATUS: CAMPOS VIRAMONTES DR: Estuardo Cobb MD _ SOURCE: URINE SPDESC: ORDERED: Urine Culture COMMENTS: [id number] Procedure Result Reported Site Urine Culture Final 03/15/17- 1208 ML No growth of clinically significant organisms * ML - MAIN LAB (PSC1) . END OF REPORT * ML=Testing performed at Main Lab DEPARTMENT OF PATHOLOGY, [address] [place] [address] Montana Gu M.D. Director [facility] # [id number] 19 Ground Crew Lines Person: [id number] Please note: The following may produce a false positive D Dimer test: - Rheumatoid factor greater than 60 IU/ml - Plasma hemoglobin greater than 0.05 gm/dl - Bilirubin greater than 50 mg/dl - Lipids greater than 1000 mg/dl - FDP greater than 20 ug/ml 21 Because ethnic data is not always readily available, this report includes an eGFR for both -Americans and non- Americans. The National Kidney Disease Education Program (NKDEP) does not endorse the use of the MDRD equation for patients that are not between the ages of 18 and 70, are , have extremes of body size, muscle mass, or nutritional status, or are non- or non-. According to the National Kidney Foundation, irrespective of diagnosis, the stage of the disease is based on the level of kidney function: Stage Description GFR(mL/min/1.73 m(2)) 1 Kidney damage with normal or decreased GFR 90 2 Kidney damage with mild decrease in GFR 60-89 3 Moderate decrease in GFR 30-59 4 Severe decrease in GFR 15-29 5 Kidney failure <15 (or dialysis) 22 AM 8.7-22.4 PM <10 23 Specimen hemolyzed. Result may not be valid. 24 Specimen hemolyzed. Result may not be valid. 25 Specimen hemolyzed. Result may not be valid. 26 Specimen hemolyzed. Result may not be valid. 27 Specimen hemolyzed. Result may not be valid. 28 Specimen hemolyzed. Result may not be valid. 29 Specimen hemolyzed. Result may not be valid. 30 Specimen hemolyzed. Result may not be valid. 31 Specimen hemolyzed. Result may not be valid. 32 Because ethnic data is not always readily available, this report includes an eGFR for both -Americans and non- Americans. The National Kidney Disease Education Program (NKDEP) does not endorse the use of the MDRD equation for patients that are not between the ages of 18 and 70, are , have extremes of body size, muscle mass, or nutritional status, or are non- or non-. According to the National Kidney Foundation, irrespective of diagnosis, the stage of the disease is based on the level of kidney function: Stage Description GFR(mL/min/1.73 m(2)) 1 Kidney damage with normal or decreased GFR 90 2 Kidney damage with mild decrease in GFR 60-89 3 Moderate decrease in GFR 30-59 4 Severe decrease in GFR 15-29 5 Kidney failure <15 (or dialysis) 33 Desirable <150 Borderline high 150-199 High 200-499 Very High >500 34 Desirable <200 Borderline high 200-239 High >239 35 Low <40 Desirable: 40-60 High: >60 36 Desirable: <100 mg/dL Near Optimal: 100-129 mg/dL Borderline High: 130-159 mg/dL High: 160-189 mg/dL Very High: >189 mg/dL 37 FASTING 12 HOUR 38 Unable to report test result due to hemolysis. 39 Unable to report test result due to hemolysis. 40 Because ethnic data is not always readily available, this report includes an eGFR for both -Americans and non- Americans. The National Kidney Disease Education Program (NKDEP) does not endorse the use of the MDRD equation for patients that are not between the ages of 18 and 70, are , have extremes of body size, muscle mass, or nutritional status, or are non- or non-. According to the National Kidney Foundation, irrespective of diagnosis, the stage of the disease is based on the level of kidney function: Stage Description GFR(mL/min/1.73 m(2)) 1 Kidney damage with normal or decreased GFR 90 2 Kidney damage with mild decrease in GFR 60-89 3 Moderate decrease in GFR 30-59 4 Severe decrease in GFR 15-29 5 Kidney failure <15 (or dialysis) 41 Acute inflammation: >10.00 Procedures Date Code Description Status 03/25/2016 25697 Diffusing Capacity Completed 03/25/2016 00135 Plethysmography Determination Lung Volumes & Per Airway Completed Resist 03/25/2016 80223 Pulmonary Function><Bronchodil Completed 03/14/2016 33931 EKG Tracing & Interpretation Completed Encounters Type Date Location Provider Dx Diagnosis Office Visit 04/14/2016 [facility] Josh Collado NP E66.01 Morbid ( severe) 1:20p Medicine - [place] obesity due to Rd excess calories J45.40 Moderate persistent asthma, uncomplicated Office Visit 03/14/2016 1:40p [facility] Josh Collado, Z00.00 [facility]tr for [facility] - [place] 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 [facility] Routine AT [facility] Care [facility] 278.01 Obesity Morbid 369.20 Vision Low Both Eyes Impairment Level Not Further Spec Plan of Treatment Future Appointment(s):02/23/2018 2:00 pm - Naty Bowie MD at [facility] Internal Medicine - [place] [address]02/04/2018 - Naty Bowie MDN76.0 Acute vaginitisComments:I will call you with any positive iocgjebN49.40 Moderate persistent asthma, uncomplicated
--- OUTSIDE RECORDS SUMMARY | 2018-02-25 09:45 | XMS REPORT | Continuity of Care Document ---
:1990 External Reference #:[id number] Author Name Ana Cristina Patel Care Team Providers Name Role Phone Estuardo Cobb MD Primary Care Physician Unavailable Payers Type Date Identification Numbers Payment Provider Subscriber Effective: Policy Number: [id number] [employer] Krystle Breaux 2013 Medicaid PayID: [id number] [address] [address] [place] [address] Advance Directives Description No Information Available Problems Date Description Provider Status Onset: 02/01/2014 Morbid obesity Daria Katz M.D. Active Onset: 02/01/2014 Impairment level: low vision of both Daria Katz M.D. 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 [employer] Tobacco Use Start: Unknown Never Smoked Cigarettes Smoking Status Reviewed: 02/23/18 Never Smoked Cigarettes ETOH Use Denies alcohol use Tobacco Use Start: Unknown Patient has never smoked Recreational Drug Use Denies Drug Use Exercise Type/Frequency Exercises regularly Allergies, Adverse Reactions, Alerts Description No Known Drug Allergies Medications Medication Date Status Form Strength Qnty SIG Indications Ordering Provider Proair HFA 04/14/ Active Aerosol 108(90Base 1units 1 puff J45.40 2016 ) mcg/Act every 4 MD Jamir hours as needed for chest tightness or wheezing Phentermine 04/14/ Hx Capsules 15mg 30caps 1 tab po qd E66.01 Josh HCL 2017 - x14 days, 5 URMILA Collado 02/23/ days off, 2018 then 1 tab po qd x14 days, then 5 days off, repeat Montelukast 04/14/ Hx Tablets 10mg 90tabs 1 by mouth J45.40 Josh Sodium 2016 - every day URMILA Collado 2017 Lotrisone 02/14/ Hx Cream 1-0.05% 45gm apply to Daria 2013 - area 2x per [place], 02/04/ day M.DKaitlin 2017 Tylenol With / Hx Tablets 300-30mg 15tabs 1 tab by Unknown Codeine #3 0000 - mouth every to 6 2015 hours as needed Nexplanon / Hx Implant 68mg 2013 Unknown 0000 - 2017 Immunizations Description No Information Available Vital Signs Date Vital Result Comment 02/23/2018 2:02pm Height 60.25 inches 5'0.25" Weight 261.50 lb Heart Rate 82 /min BP Systolic Sitting 112 mmHg BP Diastolic Sitting 80 mmHg Body Temperature 98.2 F O2 % BldC Oximetry 98 % BMI (Body Mass Index) 50.6 kg/m2 02/04/2018 10:50am Height 60.25 inches 5'0.25" Weight [...] Date Facility Test Result H/L Range Note Laboratory test [facility] In House Hemoglobin A1c 5.3 5-7 finding 8 Laboratory test [facility] Gardnerella/Yeas SEE RESULT 1, 2 finding [address] t: Vaginal Dna BELOW [place], [place] [id number] [phone] GC/Chlamydia [facility] Chlamydia Negative Negative 3 Amplified Rna [address] trachomatis Rna [place], [place] [address] [phone] Neisseria gonorrhoeae (GC) Rna Negative Negative Laboratory test 02/04/2018 [facility] Trichomonas Negative Negative [address] [place] [address] [phone] CBC Auto Diff 01/15/2018 [facility] White Blood 7.2 10^3/uL N 3.5-10.[address] Count [place], [place] [id number] [phone] Red Blood Count 4.06 10^6/uL N 4.00-5.40 [...] 0-2 Nucleated Red Blood Cells % 0.1 Laboratory test 01/15/2018 [facility] Partial 31.0 seconds N 26.0-36.[address] [place] [place] [address] PTT [phone] D Dimer Quantitative < 200 ng/mL N Less Than 230 5 Inr/Protime 01/15/2018 [facility] Inr 1.05 High 0.77-1.[address] [place] [address] [phone] Comp Metabolic 01/15/2018 [facility] Sodium 135 mmol/L N 135- [address] [place] [address] [phone] Potassium 3.8 mmol/L N 3.5-5.0 Chloride 102 [...] Non- 75.0 >60 Egfr 90.7 >60 6 Laboratory test 01/15/2018 [facility] Troponin-I (TnI) 0.00 ng/ mL <0.[address] [place] [address] [phone] HCG < 0.60 mIU/mL 7 Laboratory 12/27/2017 [facility] Gardnerella/Yeast: SEE RESULT 8, [address] [place] [address] [phone] GC/Chlamydia 12/27/2017 [facility] Chlamydia Negative Negative 10 Amplified [place] [address] [phone] Neisseria gonorrhoeae (GC) Rna Negative Negative Urine Culture And 12/27/2017 [facility] Urine SEE RESULT 11 , [address] [place] [address] [phone] Laboratory test 12/27/2017 [facility] Poc Negative Negative [address] , [place] [address] Urine [phone] Poc Urinalysis 12/27/2017 [facility] Poc Negative Negative [address] Glucose, [place] [address] Urine [phone] Poc Bilirubin, Urine Negative Negative Poc Ketone, Urine Negative Negative Poc Specific Philo, Urine 1.020 N 1.010-1.030 Poc Blood, Urine 2+ Abnormal Negative Poc pH, Urine 7.0 N 5-9 Poc Protein, Urine Trace Abnormal Negative Poc Urobilinogen, Urine 0.2 Negative Poc Nitrite, Urine Negative Negative Poc Leukocytes, Urine 2+ Abnormal Negative Poc Color, Urine Yellow Poc Clarity, Urine Cloudy 14 Laboratory test 12/04/2017 [facility] Poc , Negative Negative [address] [place] [address] [phone] Poc Urinalysis 12/04/2017 [facility] Poc Glucose, Negative Negative [address] [place] [address] [phone] Poc Bilirubin, Urine Negative Negative Poc Ketone, Urine Trace Abnormal Negative Poc Specific Philo, Urine >=1.030 N 1.010-1.030 Poc Blood, Urine Negative Negative Poc pH, Urine 6.0 N 5-9 Poc Protein, Urine Trace Abnormal Negative Poc Urobilinogen, Urine 0.2 Negative Poc Nitrite, Urine Negative Negative Poc Leukocytes, Urine Negative Negative Poc Color, Urine Dark yellow Poc Clarity, Urine Slightly Cloudy 16 Urine Culture And 03/14/2017 [facility] Urine SEE RESULT 17 , [address] [place] [address] [phone] Poc Urinalysis 03/14/2017 [facility] Poc Negative Negative [address] Glucose, [place] [address] Urine [phone] Poc Bilirubin, Urine 1+ Abnormal Negative Poc Ketone, Urine Negative Negative Poc Specific Philo, Urine >=1.030 N 1.010-1.030 Poc Blood, Urine 3+ Abnormal Negative Poc pH, Urine 5.5 N 5-9 Poc Protein, Urine 3+ Abnormal Negative Poc Urobilinogen, Urine 0.2 Negative Poc Nitrite, Urine Negative Negative Poc Leukocytes, Urine 1+ Abnormal Negative Poc Color, Urine Yellow Poc Clarity, Urine Cloudy 19 Laboratory test 03/25/2016 [facility] D Dimer 247 ng/mL High Less [address] Quantitative Than 230 [place] [address] [phone] Basic Metabolic 03/25/2016 [facility] Sodium 136 N 133-[address] mmol/[place] [address] [phone] Potassium 4.1 mmol/L N 3.5-5.0 Chloride 104 mmol/L N 101-111 Co2 Carbon Dioxide 27 mmol/L N 22-32 Anion Gap 5 mmol/L N 2-11 Glucose 107 mg/dL High 70-100 Blood Urea Nitrogen 7 mg/dL N 6-24 Creatinine 0.81 mg/dL N 0.51-0.95 BUN/Creatinine Ratio 8.6 N 8-20 Calcium 8.4 mg/dL Low 8.6-10.3 Egfr Non- 84.8 N >60 Egfr 109.1 N >60 21 Laboratory test 03/25/2016 [facility] TSH (Thyroid 1.78 mcIU/mL N 0.34-5.[address] Stim [place]orm) [place] [address] [phone] Cortisol 9.39 ?g/dL N 22 CBC Auto Diff 03/25/2016 [facility] White Blood 6.1 10^3/uL N 3.5-10.[address] [place] [address] [phone] Red Blood Count 4.10 10^6/uL N 4.0-5.4 [...] Cells % 0 N Urinalysis Profile 03/21/2016 [facility] Urine Color Yellow N [address] [place] [address] [phone] Urine Appearance Cloudy N Urine Specific Philo 1.026 N 1.010-1.030 Urine pH 5.0 N 5-9 Urine Urobilinogen Negative N Negative Urine Ketones Negative N Negative Urine Protein Negative N Negative Urine Leukocytes Negative N Negative Urine Blood Negative N Negative Urine Nitrite Negative N Negative Urine Bilirubin Negative N Negative Urine Glucose Negative N Negative CBC Auto Diff 03/21/2016 [facility] White Blood 8.1 10^3/uL N 3.5-10.[address] [place] [address] [phone] Red Blood Count 4.02 10^6/uL N 4.0-5.4 [...] % 0 N Comp Metabolic Panel 03/21/2016 [facility] Sodium 132 mmol/L Low 133-[address] [place] [address] [phone] Chloride 105 mmol/L N 101-111 Co2 Carbon [...] TNP U/L N 13-39 Lipid Profile 03/14/2016 [facility] Triglycerides 59 mg/dL N 33 (Trig/Chol/HDL) [address] [place] [address] [phone] Cholesterol 144 mg/dL N 34 HDL Cholesterol 48.9 mg/dL N 35 LDL Cholesterol 83 mg/dL N 36 Laboratory test 03/14/2016 [facility] Glucose 86 mg/dL N 70- 100 [address] [place] [address] [phone] CBC Auto Diff 05/23/2014 [facility] White Blood 8.3 10^3/uL N 4.8-10.[address] [place] [address] [phone] Red Blood Count 4.17 10^6/uL N 4.0-5.4 [...] % 0.1 N Comp Metabolic Panel 05/23/2014 [facility] Sodium 133 mmol/L N 133-[address] [place] [address] [phone] Potassium TNP mmol/L N 3.5-5.0 38 Chloride [...] N >60 40 Laboratory test finding 05/23/2014 [facility] Lipase 23 U/L N 11.0-82.0 [address] [place] [address] [phone] C Reactive Protein 12.78 mg/L High < 5.00 41 Urinalysis Profile 05/23/2014 [facility] Urine Color Dania N [address] [place] [address] [phone] Urine Appearance Turbid N Urine Specific Philo 1.024 N 1.010-1.030 Urine pH 5.0 N 5-9 Urine Urobilinogen Negative N Negative Urine Ketones Negative N Negative Urine Protein Negative N Negative Urine Leukocytes Negative N Negative Urine Blood Negative N Negative Urine Nitrite Negative N Negative Urine Bilirubin Negative N Negative Urine Glucose Negative N Negative Laboratory test 01/24/2014 [facility] TSH (Thyroid 1.36 IU/mL N 0.34-5.[address] [place] [address] [facility]) [phone] Free T4 0.95 ng/mL N 0.61-1.12 1 [id number] 2 SEE RESULT BELOW Name: KRYSTLE BREAUX : [address]: Naty Bowie MD Acct: [id number] Unit: [id number] AGE: 27 Location: [facility] Re02/04/18 SEX: F Status: REG REF SPEC: [id number] MUKESH: 02/04/18-[address] [facility] [address]: Naty Bowie MD REQ: [id number] RECD: 02/04/18 STATUS: COMP _ SOURCE: VAGINAL SPDESC: ORDERED: Marii,Yeast DNA COMMENTS: [id number] Would you like to order Trichomonas Vaginalis [...] . END OF REPORT DEPARTMENT OF PATHOLOGY, [address] [place] [address] Montana Gu M.D. Director [facility] # [id number] 3 [id number] 4 [id number] GC/Chlamydia Source?: Endocervical Trichomonas Source: Endocervical 5 Please note: The following may produce a false positive D Dimer test: - Rheumatoid factor greater than 60 IU/ml - Plasma hemoglobin greater than 0.05 gm/dl - Bilirubin greater than 50 mg/dl - Lipids greater than 1000 mg/dl - FDP greater than 20 ug/ml 6 Because ethnic data is not always [...] 5 Kidney failure <15 (or dialysis) 7 <5.0 Negative 5.0 - 25.0 Indeterminate (Repeat testing recommended after 72 hours) >25.0 Positive Perimenopausal women can display HCG levels of up to 20 mIU/mL 8 Would you like to order Trichomonas Vaginalis RNA testing? Y [id number] 9 SEE RESULT BELOW Name: KRYSTLE BREAUX : [address]: Sima Uribe MD Acct: [id number] Unit: [id number] AGE: 27 Location: [facility] Re12/27/17 SEX: F Status: DEP ER SPEC: [id number] MUKESH: 12/27/17-[address] [facility] [address]: Renita MCCRAY REQ: [id number] RECD: 12/27/174841 STATUS: COMP OTHR DR: Sima Cobb MD _ SOURCE: VAGINAL SPDESC: ORDERED: Marii,Yeast DNA, Trich DNA COMMENTS: Would you like to order Trichomonas Vaginalis RNA testing? Y [id number] Procedure Result Reported Site Gardnerella/Yeast: Vaginal DNA [...] or failure. Trichomonas: Vaginal DNA Probe Final 12/27/171506 ML Organism 1 POSITIVE TRICHOMONAS CONTINUED ON NEXT PAGE DEPARTMENT OF PATHOLOGY, [address] [place] [address] Montana Gu M.D. Director [facility] # [id number] Patient: KRYSTLE BREAUX N [id number] (Continued) Specimen: [id number] Collected: 12/27/171025 Received: 12/27/170298 (Continued) Procedure Result Reported Site Trichomonas: Vaginal DNA Probe Final (continued) 12/27/17- 150 The presence or absence of T. vaginalis cannot be used as a test for therapeutic success or failure. * - [facility] . END OF REPORT DEPARTMENT OF PATHOLOGY, [address] [place] [address] Montana uG M.D. Director [facility] # [id number] 10 [id number] 11 [id number] 12 SEE RESULT BELOW Name: KRYSTLE BREAUX : [address]: Sima Uribe MD Acct: [id number] Unit: [id number] AGE: 27 Location: [facility] Re12/27/17 SEX: F Status: DEP ER SPEC: [id number] MUKESH: 12/27/17-[address] [facility] [address]: Renita MCCRAY REQ: [id number] RECD: 12/27/17 STATUS: CAMPOS VIRAMONTES DR: Sima Cobb MD _ SOURCE: URINE SPDESC: ORDERED: Urine Culture COMMENTS: [id number] Procedure Result Reported Site Urine Culture Final 12/28/17- 1204 ML No growth of clinically significant organisms * ML - Main Lab . END OF REPORT DEPARTMENT OF PATHOLOGY, [address] [place] [address] Montana Gu M.D. Director [facility] # [id number] 13 Grading Clerk: [id number] If is still suspected, please repeat test after 48 to 72 hours. 14 Grading Clerk: [id number] 15 Grading Clerk: [id number] If is still suspected, please repeat test after 48 to 72 hours. 16 Grading Clerk: [id number] 17 [id number] 18 SEE RESULT BELOW Name: KRYSTLE BREAUX : [address]: Sima Uribe MD Acct: [id number] Unit: [id number] AGE: 26 Location: [facility] Re03/14/17 SEX: F Status: DEP ER SPEC: [id number] MUKESH: 03/14/17-[address] [facility] [address]: Sima Uribe MD REQ: [id number] RECD: 03/14/17703 STATUS: CAMPOS VIRAMONTES DR: Estuardo Cobb MD _ SOURCE: URINE SPDESC: ORDERED: Urine Culture COMMENTS: [id number] Procedure Result Reported Site Urine Culture Final 03/15/17- 1208 ML No growth of clinically significant organisms * ML - MAIN LAB (PSC1) . END OF REPORT * ML=Testing performed at Main Lab DEPARTMENT OF PATHOLOGY, [address] [place] [address] Montana Gu M.D. Director [facility] # [id number] 19 Grading Clerk: [id number] Please note: The following may produce [...] >10.00 Procedures Date Code Description Status 03/25/2016 20587 Diffusing Capacity Completed 03/25/2016 69138 Plethysmography Determination Lung Volumes & Per Airway Completed Resist 03/25/2016 76152 Pulmonary Function><Bronchodil Completed 03/14/2016 07330 EKG Tracing & Interpretation Completed Encounters Type Date Location Provider Dx Diagnosis Office Visit 02/04/2018 [facility] Internal Naty Bowie MD N76.0 Acute vaginitis 10:30a Medicine - [place] [address] J45.40 Moderate persistent asthma, uncomplicated Office Visit 04/14/2016 1:20p [facility] Internal Josh Collado, E66.01 Morbid ( severe) 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 J45.40 Moderate persistent asthma, uncomplicated Office Visit 03/14/2016 1:40p [facility] Internal Josh Collado, Z00.00 [facility]tr for Medicine - [place] TRENCH DIGGER general adult Rd medical exam w/o abnormal findings R07.9 Chest pain, unspecified E66.01 Morbid (severe) obesity due to excess calories Office Visit 01/24/2014 2:00p [facility] Internal Daria Katz V70.0 Examination Medicine - [facility] Routine AT [facility] 278.01 Obesity Morbid 369.20 Vision Low Both Eyes Impairment Level Not Further Spec Plan of Treatment Future Appointment(s):05/24/2018 1:40 pm - Naty Bowie MD at [facility] Internal Medicine - [place] [address]02/23/2018 - Naty Bowie MDZ00.01 Encounter for general adult medical examination with acmlhlgF97.83 Other fatigueReferral:[facility], Sleep Disord,Diag/IesfqxW73.9 Hyperglycemia, unspecifiedComments:Your Hga1c is 5.3%, no zxqkympcZ70.9 Obesity, unspecifiedComments:I recommend reading The Obesity Code by Dr. Jere Cotton, you can also learn about low carb/ high fat eating at www.[employer]47.00 Insomnia, unspecifiedComments:Be sure you have a dark quiet room to sleep in. Avoid reading or watching television in bed. I recommend melatonin taken 2 hours before bedtime every day. Start with 1 mg and slowly increase up to 4 mg. You should have a set bedtime and wake time every day no matter what.I recommend bedtime yoga andguided meditations, you can find some for free at~l_a href=~q_ www.[employer]~q_ target=~q__blank~q_~g_www.[employer]~l_/a~g_ Follow up:3 months
[2018-02-25 10:08] VITALS: BP 111/69
--- NOTE | 2018-02-25 10:49 | UC ---
Throat Pain/Nasal [place] HPI - HPI Summary HPI Summary: 27-year-old woman comes in to clinic today with a chief complaint of sore throat and ear pain. Bilateral ear pain having started yesterday. It hurts quite a bit to try to swallow. Been using lozenges which helped some but then the pain returns. No cough or chest congestion. - History of Current Complaint Chief Complaint: UCGeneralIllness Stated Complaint: SORE THROAT Time Seen by Provider: 02/25/18 10:38 Hx Last Menstrual Period: 01/27/18 Pain Intensity: 8 - Allergies/Home Medications Allergies/Adverse Reactions: Allergies Allergy/AdvReac Type Severity Reaction Status Date / Time No Known Allergies Allergy Verified 02/25/18 10:02 Home Medications: Home Medications Albuterol HFA INHALER* [Ventolin HFA Inhaler*] 1 puff INH DAILY PRN 02/25/18 [ History Confirmed 02/25/18] PMH/Surg Hx/FS Hx/Imm Hx Previously Healthy: Yes Respiratory History: Asthma - Surgical History Surgical History: Yes Surgery Procedure, Year, and Place: - Family History Known Family History: Positive: Other - Hx Kidney stones in mother Negative: Hypertension Family History: Hx Kidney stones in mother - Social History Alcohol Use: None Substance Use Type: None Smoking Status (MU): Never Smoked Tobacco Review of Systems All Other Systems Reviewed And Are Negative: Yes Constitutional: Positive: Negative Skin: Positive: Negative Eyes: Positive: Negative ENT: Positive: Sore Throat, Ear Ache, Nasal Discharge Respiratory: Positive: Negative Cardiovascular: Positive: Negative Gastrointestinal: Positive: Negative Motor: Positive: Negative Neurovascular: Positive: Negative Musculoskeletal: Positive: Negative Neurological: Positive: Negative Psychological: Positive: Negative Is Patient Immunocompromised?: No Physical Exam Triage Information Reviewed: Yes Appearance: No Pain Distress, Well-Nourished, Ill-Appearing - mild Vital Signs: Initial Vital Signs Temp 97.3 F 02/25/18 10:03 Pulse 63 02/25/18 10:03 Resp 18 02/25/18 10:03 BP 111/69 02/25/18 10:03 Pulse Ox 100 02/25/18 10:03 Vital Signs Reviewed: Yes Eye Exam: Normal ENT: Positive: Pharyngeal erythema, Nasal congestion, Nasal drainage, TMs normal Neck exam: Normal Neck: Positive: Supple Respiratory: Positive: Lungs clear, Normal breath sounds, No respiratory distress Cardiovascular: Positive: RRR Musculoskeletal Exam: Normal Musculoskeletal: Positive: Strength Intact, ROM Intact Neurological Exam: Normal Neurological: Positive: Alert, Muscle Tone Normal Psychological Exam: Normal Psychological: Positive: Age Appropriate Behavior Skin Exam: Normal Throat Pain/Nasal Course/Dx - Course Course Of Treatment: Patient's pharynx is bright red in because of its appearance of strep pharyngitis I discussed with the patient and will go ahead and treat with an antibiotic. - Differential Dx/Diagnosis Provider Diagnosis: Pharyngitis Discharge - Sign-Out/Discharge Documenting (check all that apply): Patient Departure All imaging exams completed and their final reports reviewed: No Studies - Discharge Plan Condition: Stable Disposition: HOME Prescriptions: Amoxicillin PO (*) [Amoxicillin 875 MG (*)] 875 mg PO BID #20 tab Referrals: Estuardo Cobb MD [Primary Care Provider] - Additional Instructions: FOLLOW UP WITH YOUR DOCTOR IF NOT COMPLETELY IMPROVED. GET RECHECKED FOR ANY WORSENING OF YOUR CONDITION OR QUESTIONS OR CONCERNS. - Billing Disposition and Condition Condition: STABLE Disposition: Home
== END 2018-02-25 11:00 | disposition home or self-care (01) ==
LOC: UCEAST 09:40
DX: J02.9 Acute pharyngitis, unspecified (principal); J45.909 Unspecified asthma, uncomplicated
CPT/HCPCS: 87651; 99212; G0463

== ENCOUNTER 2018-04-21 14:45 | Emergency (ER) | payer OTHER ==
[2018-04-21 14:57] VITALS: BP 119/58
--- NOTE | 2018-04-21 15:13 | UC ---
Back Pain HPI - HPI Summary HPI Summary: 28 year old female presents with onset of right mid back pain yesterday. States pain is sharp, constant, and worsens with movement or deep breath. Has not taken anything for the pain. Denies fever, chills, rash, chest pain, palpitations, shortness of breath, cough, abdominal pain, nausea, or vomiting. - History of Current Complaint Chief Complaint: UCBackPain Stated Complaint: BACK SPASMS, AND CHEST CONGESTION Time Seen by Provider: 04/21/18 14:57 Hx Obtained From: Patient Hx Last Menstrual Period: 03/23/18 Pain Intensity: 9 - Allergies/Home Medications Allergies/Adverse Reactions: Allergies Allergy/AdvReac Type Severity Reaction Status Date / Time No Known Allergies Allergy Verified 04/21/18 14:57 PMH/Surg Hx/FS Hx/Imm Hx Previously Healthy: Yes - Denies significant PMH - Surgical History Surgical History: Yes Surgery Procedure, Year, and Place: - Family History Known Family History: Positive: Other - Hx Kidney stones in mother Negative: Hypertension Family History: Hx Kidney stones in mother - Social History Occupation: Employed Full-time Lives: With Family Alcohol Use: None Substance Use Type: None Smoking Status (MU): Never Smoked Tobacco Review of Systems All Other Systems Reviewed And Are Negative: Yes Constitutional: Negative: Fever, Chills Skin: Negative: Rash Respiratory: Negative: Shortness Of Breath, Cough Cardiovascular: Negative: Palpitations, Chest Pain Gastrointestinal: Negative: Abdominal Pain, Vomiting, Diarrhea, Nausea Genitourinary: Negative: Dysuria, Hematuria, Frequency, Urgency, Vaginal/Penile Discharge, Abnormal Bleeding Motor: Negative: Weakness Neurovascular: Negative: Decreased Sensation Musculoskeletal: Positive: Other: - See HPI Neurological: Negative: Weakness, Paresthesia, Numbness Physical Exam - Summary Physical Exam Summary: GENERAL APPEARANCE: Well developed, obese, alert and cooperative, and appears to be in no acute distress. NECK: Neck supple, non-tender. CARDIAC: Normal S1 and S2. No S3, S4 or murmurs. Rhythm is regular. There is no peripheral edema, cyanosis or pallor. Extremities are warm and well perfused. Capillary refill is less than 2 seconds. LUNGS: Clear to auscultation without rales, rhonchi, wheezing or diminished breath sounds. ABDOMEN: Positive bowel sounds. Soft, nondistended, nontender. No guarding or rebound. No masses or hepatosplenomegally. MUSKULOSKELETAL: ROM intact to all extremities. No joint erythema or tenderness. Normal muscular development. Normal gait. BACK: Soft tissue tenderness without spasm to right thoracic back. Examination of the spine reveals normal gait and posture, no spinal deformity or tenderness. NEUROLOGICAL: Strength and sensation intact throughout. SKIN: Skin normal color, texture and turgor with no lesions or eruptions. Triage Information Reviewed: Yes Vital Signs: Initial Vital Signs Temp 98.7 F 04/21/18 14:53 Pulse 80 04/21/18 14:53 Resp 16 04/21/18 14:53 BP 119/58 04/21/18 14:53 Pulse Ox 99 04/21/18 14:53 Vital Signs Reviewed: Yes Back Pain Course/Dx - Course Course Of Treatment: 28 year old female presents with onset of right mid back pain yesterday. States pain is sharp, constant, and worsens with movement or deep breath. Has not taken anything for the pain. Denies fever, chills, rash, chest pain, palpitations, shortness of breath, cough, abdominal pain, nausea, or vomiting. Afebrile. Vital signs stable. Exam reveals mild soft tissue tenderness of the right thoracic back, nontender neck and spine, strength and sensation intact throughout, and otherwise unremarkable exam. Pain appears to be muscular in origin. Recommending conservative treatment with NSAIDs and heat. She is to follow-up with her primary care provider in 7 days if symptoms do not improve. Anticipatory guidance and warning symptoms are reviewed with the patient. Verbalizes understanding and agrees with plan of care. - Differential Dx/Diagnosis Differential Diagnosis/HQI/PQRI: Herniated Disc, Strain, Sprain Provider Diagnosis: Acute back pain Discharge - Sign-Out/Discharge Documenting (check all that apply): Patient Departure All imaging exams completed and their final reports reviewed: No Studies - Discharge Plan Condition: Stable Disposition: HOME Prescriptions: Naproxen [Naproxen 500 mg tab] 500 mg PO Q12HR #30 tablet Patient Education Materials: Back Pain (ED) Forms: *Work Release Referrals: Estuardo Cobb MD [Primary Care Provider] - 7 Days (If no improvement.) Additional Instructions: Your history and physical are consistent with an acute back strain. Take naproxen 1 tab every 12 hours with food for next 5 days then may take as needed. Apply a heating pad to the affected area for 15-20 minutes at least 4 times a day to help relax the muscles. Try to stay active however you should avoid heavy lifting and strenuous activity while having pain. Follow up with your primary care provider in 7 days if no improvement in symptoms. Seek immediate medical attention in the emergency room if you have worsening of pain despite taking pain medication, have chest pain, shortness of breath, abdominal pain, nausea, vomiting, weakness, numbness, or tingling in the extremities, loss of bowel or bladder control, or any worsening of symptoms. - Billing Disposition and Condition Condition: STABLE Disposition: Home
== END 2018-04-21 15:30 | disposition home or self-care (01) ==
LOC: UCEAST 14:45
DX: M54.6 Pain in thoracic spine (principal); R09.89 Other specified symptoms and signs involving the circulatory and respiratory systems
CPT/HCPCS: 99212; G0463

== ENCOUNTER 2018-09-22 19:20 | Emergency (ER) | payer OTHER ==
[2018-09-22 19:35] VITALS: BP 123/105
[2018-09-22] MEDS ORDERED: Ibuprofen TAB* 600 MG PO ONE (19:43)
[2018-09-22] MEDS ORDERED: Amoxicillin PO (*) 500 MG CAP PO ONE (19:43)
--- NOTE | 2018-09-22 19:47 | UC ---
Dental HPI - HPI Summary HPI Summary: 28-year-old female comes in with a chief complaint of left upper molar pain. Started about 4 days ago. She's tried Orajel and other medications that will help briefly. Pains getting worse rather than better. No difficulty swallowing no shortness of breath. - History of Current Complaint Chief Complaint: UCDentalProblem Stated Complaint: TOOTHACHE Time Seen by Provider: 09/22/18 19:39 Hx Last Menstrual Period: September 02, 2018 Pain Intensity: 10 - Allergies/Home Medications Allergies/Adverse Reactions: Allergies Allergy/AdvReac Type Severity Reaction Status Date / Time No Known Allergies Allergy Verified 09/22/18 19:35 PMH/Surg Hx/FS Hx/Imm Hx Previously Healthy: Yes - Surgical History Surgical History: Yes Surgery Procedure, Year, and Place: - Family History Known Family History: Positive: Other - Hx Kidney stones in mother Negative: Hypertension Family History: Hx Kidney stones in mother - Social History Alcohol Use: None Substance Use Type: None Smoking Status (MU): Never Smoked Tobacco Review of Systems All Other Systems Reviewed And Are Negative: Yes Constitutional: Positive: Negative Skin: Positive: Negative Eyes: Positive: Negative ENT: Positive: Dental Pain Respiratory: Positive: Negative Cardiovascular: Positive: Negative Gastrointestinal: Positive: Negative Motor: Positive: Negative Neurovascular: Positive: Negative Musculoskeletal: Positive: Negative Neurological: Positive: Negative Psychological: Positive: Negative Is Patient Immunocompromised?: No Physical Exam Triage Information Reviewed: Yes Appearance: Well-Appearing, Well-Nourished, Pain Distress - MILD Vital Signs: Initial Vital Signs Temp 98.8 F 09/22/18 19:28 Pulse 81 09/22/18 19:28 Resp 18 09/22/18 19:28 BP 123/105 09/22/18 19:28 Pulse Ox 99 09/22/18 19:28 Vital Signs Reviewed: Yes Eye Exam: Normal Eyes: Positive: Conjunctiva Clear ENT: Negative: Nasal drainage Dental: Positive: Gross Decay/Caries @ - LEFT UPPER MOLAR Neck: Positive: Supple Respiratory: Positive: No respiratory distress Musculoskeletal Exam: Normal Musculoskeletal: Positive: Strength Intact, ROM Intact Neurological: Positive: Alert, Muscle Tone Normal Psychological Exam: Normal Psychological: Positive: Age Appropriate Behavior Skin Exam: Normal Dental Complaint Course/Dx - Differential Dx/Diagnosis Provider Diagnosis: Pain, dental Discharge - Sign-Out/Discharge Documenting (check all that apply): Patient Departure All imaging exams completed and their final reports reviewed: No Studies - Discharge Plan Condition: Stable Disposition: HOME Prescriptions: Amoxicillin PO (*) [Amoxicillin 500 MG CAP*] 500 mg PO TID #29 cap HYDROcodone/ACETAMIN 5-325 MG* [[place] 5-325 TAB*] 1 tab PO Q4H PRN #20 tab MDD 6 PRN Reason: Pain Ibuprofen TAB* [Motrin TAB* 600 MG] 600 mg PO Q6H PRN #30 tab PRN Reason: Pain Patient Education Materials: Toothache (ED) Referrals: Naty Bowie MD [Primary Care Provider] - Additional Instructions: FOLLOW UP WITH YOUR DENTIST. GET RECHECKED SOONER IF YOUR CONDITION WORSENS OR ANY QUESTIONS OR CONCERNS. - Billing Disposition and Condition Condition: STABLE Disposition: Home
== END 2018-09-22 19:55 | disposition home or self-care (01) ==
LOC: UCEAST 19:20
DX: K08.89 Other specified disorders of teeth and supporting structures (principal)
CPT/HCPCS: 99212; A9270-GY; G0463

== ENCOUNTER 2018-12-20 13:41 | Emergency (ER) | payer OTHER ==
[2018-12-20 13:50] VITALS: BP 129/79
--- NOTE | 2018-12-20 13:58 | UC ---
Throat Pain/Nasal [place] HPI - HPI Summary HPI Summary: Patient is a 28yo female presenting with sore throat x3 hours. States she woke up with a sore throat and is now experiencing chills and body aches. Denies nasal congestion, nasal discharge, ear pain, and cough. Denies SOB and wheezing. Denies n/v/d and abdominal pain. Denies any ill contacts. Denies trying anything for symptom relief. - History of Current Complaint Chief Complaint: UCRespiratory Stated Complaint: SORE THROAT Hx Obtained From: Patient Hx Last Menstrual Period: September 02, 2018 Onset/Duration: Sudden Onset, Lasting Hours Severity: Severe Pain Intensity: 10 Pain Scale Used: 0-10 Numeric - Allergies/Home Medications Allergies/Adverse Reactions: Allergies Allergy/AdvReac Type Severity Reaction Status Date / Time No Known Allergies Allergy Verified 12/20/18 13:50 Home Medications: Home Medications NK [No Home Medications Reported] 12/20/18 [History Confirmed 12/20/18] PMH/Surg Hx/FS Hx/Imm Hx - Surgical History Surgical History: Yes Surgery Procedure, Year, and Place: - Family History Known Family History: Positive: Other - Hx Kidney stones in mother, Non- Contributory Negative: Hypertension Family History: Hx Kidney stones in mother - Social History Alcohol Use: None Substance Use Type: None Smoking Status (MU): Never Smoked Tobacco Review of Systems All Other Systems Reviewed And Are Negative: Yes Constitutional: Positive: Chills. Negative: Fever, Fatigue Skin: Positive: Negative Eyes: Positive: Negative. Negative: Drainage, Eye Redness, Photophobia ENT: Positive: Sore Throat. Negative: Ear Ache, Nasal Discharge, Sinus Congestion, Sinus Pain/Tenderness Respiratory: Positive: Negative. Negative: Shortness Of Breath, Cough Cardiovascular: Positive: Negative. Negative: Palpitations, Chest Pain Gastrointestinal: Positive: Negative. Negative: Abdominal Pain, Vomiting, Diarrhea, Nausea Genitourinary: Positive: Negative Musculoskeletal: Positive: Myalgia. Negative: Decreased ROM, Edema Neurological: Negative: Headache Physical Exam Triage Information Reviewed: Yes Appearance: Well-Appearing, No Pain Distress, Well-Nourished Vital Signs: Initial Vital Signs Temp 99.1 F 12/20/18 13:48 Pulse 87 12/20/18 13:48 Resp 18 12/20/18 13:48 BP 129/79 12/20/18 13:48 Pulse Ox 100 12/20/18 13:48 Lab Results 12/20/18 Range/Units 13:58 Group A Strep Rapid Negative (Negative) Vital Signs Reviewed: Yes Eyes: Positive: Conjunctiva Clear ENT: Positive: Hearing grossly normal, Pharyngeal erythema, TMs normal, Tonsillar swelling, Uvula midline. Negative: Nasal congestion, Nasal drainage, TM bulging, TM dull, TM red, Tonsillar exudate, Hoarse voice, Sinus tenderness Neck exam: Normal Neck: Positive: Supple, No Lymphadenopathy, Tenderness @ - anterior cervical nodes Respiratory Exam: Normal Respiratory: Positive: Lungs clear, Normal breath sounds, No respiratory distress, No accessory muscle use. Negative: Stridor, Wheezing Cardiovascular Exam: Normal Cardiovascular: Positive: RRR. Negative: Tachycardia Neurological: Positive: Alert Psychological: Positive: Age Appropriate Behavior Skin Exam: Normal Throat Pain/Nasal Course/Dx - Course Course Of Treatment: Discussed with patient the likely viral etiology of pharyngitis. She received ibuprofen here for pain relief. Patient instructed to continue to take OTC cough and cold medications for relief of cold symptoms. May take OTC analgesics as directed for pain and use throat lozenges, and throat sprays for symptomatic relief. Directed to wash hands often, get plenty of rest and fluids, and return if symptoms worsen or do not resolve within 7 days. Patient voiced understanding and agreed to treatment plan. - Differential Dx/Diagnosis Provider Diagnosis: Pharyngitis Discharge ED - Sign-Out/Discharge Documenting (check all that apply): Patient Departure All imaging exams completed and their final reports reviewed: No Studies - Discharge Plan Condition: Stable Disposition: HOME Patient Education Materials: Pharyngitis (ED), Cold Symptoms (ED) Referrals: Naty Bowie MD [Primary Care Provider] - If Needed Additional Instructions: As discussed, your strep test was negative today and your symptoms are most likely caused by a virus. You may continue to take over the counter cough and cold medications for your cold symptoms. You may use nasal saline spray as directed for symptomatic relief. You may take ibuprofen as directed for pain relief. Get plenty of rest and fluids. Return or follow up with your primary care doctor if your symptoms worsen or do not resolve within 7 days. - Billing Disposition and Condition Condition: STABLE Disposition: Home
[2018-12-20] MEDS ORDERED: Ibuprofen TAB* 600 MG PO ONE (14:03)
== END 2018-12-20 14:34 | disposition home or self-care (01) ==
LOC: UCEAST 13:41
DX: J02.9 Acute pharyngitis, unspecified (principal); M79.10 Myalgia, unspecified site
CPT/HCPCS: 87651; 99212; A9270-GY; G0463

== ENCOUNTER 2019-01-12 10:31 | Emergency (ER) | payer OTHER ==
[2019-01-12 11:06] VITALS: BP 108/71
--- NOTE | 2019-01-12 11:20 | UC ---
Throat Pain/Nasal [place] HPI - HPI Summary HPI Summary: She has a 28-year-old female presenting with sore throat 3 weeks. Patient states she was seen here when sore throat first began and strep test was negative. Patient states sore throat never got better and has worsened over the past 3 days. States she had a fever of 102 on Thursday. She says that her throat feels so swollen she is afraid to eat because she doesn't want anything to get stuck in her throat. She denies taking any medications to relieve her symptoms. Denies fever and chills today. Denies headaches. Denies nausea, vomiting, diarrhea. Denies ear pain, nasal congestion, sinus tenderness. Notes mild nonproductive cough. Denies history of mono. - History of Current Complaint Chief Complaint: UCGeneralIllness Stated Complaint: SORE THROAT Hx Obtained From: Patient Hx Last Menstrual Period: 12/13/18 Onset/Duration: Gradual Onset, Lasting Weeks Severity: Severe Pain Intensity: 8 Pain Scale Used: 0-10 Numeric - Allergies/Home Medications Allergies/Adverse Reactions: Allergies Allergy/AdvReac Type Severity Reaction Status Date / Time No Known Allergies Allergy Verified 01/12/19 11:01 PMH/Surg Hx/FS Hx/Imm Hx - Surgical History Surgical History: Yes Surgery Procedure, Year, and Place: - Family History Known Family History: Positive: Other - Hx Kidney stones in mother, Non- Contributory Negative: Hypertension Family History: Hx Kidney stones in mother - Social History Alcohol Use: None Substance Use Type: None Smoking Status (MU): Never Smoked Tobacco Review of Systems All Other Systems Reviewed And Are Negative: Yes Constitutional: Positive: Fever, Chills. Negative: Fatigue Eyes: Positive: Negative ENT: Positive: Sore Throat. Negative: Ear Ache, Nasal Discharge, Sinus Congestion, Sinus Pain/Tenderness Respiratory: Positive: Cough. Negative: Shortness Of Breath Cardiovascular: Positive: Negative Gastrointestinal: Positive: Negative. Negative: Abdominal Pain, Vomiting, Nausea Musculoskeletal: Positive: Negative. Negative: Myalgia Neurological: Positive: Negative. Negative: Headache Physical Exam Triage Information Reviewed: Yes Appearance: Well-Appearing, No Pain Distress, Well-Nourished Vital Signs: Initial Vital Signs Temp 98.6 F 01/12/19 11:02 Pulse 83 01/12/19 11:02 Resp 16 01/12/19 11:02 BP 108/71 01/12/19 11:02 Pulse Ox 100 01/12/19 11:02 Lab Results 01/12/19 Range/Units 11:23 Group A Strep Rapid Negative (Negative) Vital Signs Reviewed: Yes Eyes: Positive: Conjunctiva Clear ENT: Positive: Hearing grossly normal, Pharyngeal erythema, TMs normal, Tonsillar swelling, Uvula midline. Negative: Nasal congestion, Nasal drainage, TM bulging, TM dull, TM red, Tonsillar exudate, Trismus, Muffled voice, Hoarse voice, Sinus tenderness Neck: Positive: Supple, No Lymphadenopathy, Tenderness @ - Left lateral neck Respiratory Exam: Normal Respiratory: Positive: Lungs clear, Normal breath sounds, No respiratory distress. Negative: Crackles, Rhonchi, Stridor, Wheezing Cardiovascular Exam: Normal Cardiovascular: Positive: RRR. Negative: Tachycardia Neurological: Positive: Alert Psychological: Positive: Age Appropriate Behavior Throat Pain/Nasal Course/Dx - Course Course Of Treatment: Discussed negative strep test with patient that I am still treating her with Keflex for possible bacterial infection. Also getting her short course of prednisone to help relieve inflammation of throat. I sent a throat swab for culture. Patient also tested for mono today. Informed her that she'll be notified with any positive results or need for change in treatment. Instructed her to go to the ED if symptoms worsen. Patient voiced understanding and agreed with the treatment plan. Discussed patient with Dr. Che who also agreed with the treatment plan. - Differential Dx/Diagnosis Provider Diagnosis: Pharyngitis Discharge ED - Sign-Out/Discharge Documenting (check all that apply): Patient Departure All imaging exams completed and their final reports reviewed: No Studies - Discharge Plan Condition: Stable Disposition: HOME Prescriptions: Cephalexin CAP* [Keflex CAP*] 500 mg PO BID #20 cap predniSONE TAB* [Deltasone 20 MG TAB*] 20 mg PO DAILY #5 tab Patient Education Materials: Prednisone (By mouth), Pharyngitis (ED) Referrals: Naty Bowie MD [Primary Care Provider] - If Needed Additional Instructions: As discussed, your rapid strep test was negative today. Culture has been sent and he will be notified with any positive results needing a change in treatment. You have also been tested for mono and will be notified with any positive results. Take Keflex as prescribed to treat pharyngitis. Take the prednisone as prescribed to help reduce inflammation in your throat. It is important that you drink plenty of fluids. Follow-up with your primary care physician if symptoms persist. The emergency room if you experience difficulty breathing, fever higher than 102 , nausea, or vomiting. - Billing Disposition and Condition Condition: STABLE Disposition: Home
--- NOTE | 2019-01-13 15:20 | UC ---
- Progress Note Progress Note: Please notify pt she has Group C strep pharyngitis Continue treatment Course/Dx - Diagnoses Provider Diagnoses: Pharyngitis Discharge ED - Sign-Out/Discharge Documenting (check all that apply): Post-Discharge Follow Up All imaging exams completed and their final reports reviewed: No Studies - Discharge Plan Condition: Stable Disposition: HOME Prescriptions: Cephalexin CAP* [Keflex CAP*] 500 mg PO BID #20 cap predniSONE TAB* [Deltasone 20 MG TAB*] 20 mg PO DAILY #5 tab Patient Education Materials: Prednisone (By mouth), Pharyngitis (ED) Referrals: Naty Bowie MD [Primary Care Provider] - If Needed Additional Instructions: As discussed, your rapid strep test was negative today. Culture has been sent and he will be notified with any positive results needing a change in treatment. You have also been tested for mono and will be notified with any positive results. Take Keflex as prescribed to treat pharyngitis. Take the prednisone as prescribed to help reduce inflammation in your throat. It is important that you drink plenty of fluids. Follow-up with your primary care physician if symptoms persist. The emergency room if you experience difficulty breathing, fever higher than 102 , nausea, or vomiting. - Billing Disposition and Condition Condition: STABLE Disposition: Home
[2019-01-14 15:41] LABS: EBV Capsid Ag IgG Ab Positive (Negative); EBV Capsid Ag IgM Ab Negative (Negative); Epstein-Barr Nuclear Antigen Positive (Negative)
--- NOTE | 2019-01-15 07:16 | UC ---
- Progress Note Progress Note: EBV IgG Postive, IgM negative suggest remote infection no change [facility] Course/Dx - Diagnoses Provider Diagnoses: Pharyngitis Discharge ED - Sign-Out/Discharge Documenting (check all that apply): Post-Discharge Follow Up All imaging exams completed and their final reports reviewed: No Studies - Discharge Plan Condition: Stable Disposition: HOME Prescriptions: Cephalexin CAP* [Keflex CAP*] 500 mg PO BID #20 cap predniSONE TAB* [Deltasone 20 MG TAB*] 20 mg PO DAILY #5 tab Patient Education Materials: Prednisone (By mouth), Pharyngitis (ED) Referrals: Naty Bowie MD [Primary Care Provider] - If Needed Additional Instructions: As discussed, your rapid strep test was negative today. Culture has been sent and he will be notified with any positive results needing a change in treatment. You have also been tested for mono and will be notified with any positive results. Take Keflex as prescribed to treat pharyngitis. Take the prednisone as prescribed to help reduce inflammation in your throat. It is important that you drink plenty of fluids. Follow-up with your primary care physician if symptoms persist. The emergency room if you experience difficulty breathing, fever higher than 102 , nausea, or vomiting. - Billing Disposition and Condition Condition: STABLE Disposition: Home
== END 2019-01-12 12:07 | disposition home or self-care (01) ==
LOC: UCEAST 10:31
DX: J02.9 Acute pharyngitis, unspecified (principal)
CPT/HCPCS: 36415; 86308; 86664; 86665; 87070; 87077; 87651; 99212; G0463

== ENCOUNTER 2019-03-18 15:41 | Emergency (ER) | payer OTHER ==
[2019-03-18 16:15] VITALS: BP 120/73
--- NOTE | 2019-03-18 16:28 | UC ---
FLU HPI - HPI Summary HPI Summary: 28 yo woman with onset of malaise, fever, sore throat and headache last night. She has vomited x 2 today and reports little intake of fluids and no solids today. Hx of asthma, and has had flu vaccine this year. - History of Current Complaint Chief Complaint: UCGeneralIllness Stated Complaint: CHEST CONGESTION Time Seen by Provider: 03/18/19 16:20 Hx Obtained From: Patient Hx Last Menstrual Period: 02/23/2019 Onset/Duration: Sudden Onset Severity Currently: Mild Severity Initially: Moderate Pain Intensity: 6 Associated Signs & Symptoms: Positive: Fever, Myalgia, Sore Throat, Nasal Congestion, Headache, Vomiting - Allergy/Home Medications Allergies/Adverse Reactions: Allergies Allergy/AdvReac Type Severity Reaction Status Date / Time No Known Allergies Allergy Verified 01/12/19 11:01 PMH/Surg Hx/FS Hx/Imm Hx Previously Healthy: Yes Respiratory History: Asthma - Surgical History Surgical History: Yes Surgery Procedure, Year, and Place: - Family History Known Family History: Positive: Other - Hx Kidney stones in mother, Non- Contributory Negative: Hypertension Family History: Hx Kidney stones in mother - Social History Occupation: Employed Full-time Lives: With Family Alcohol Use: None Substance Use Type: None Smoking Status (MU): Never Smoked Tobacco Review of Systems All Other Systems Reviewed And Are Negative: Yes Constitutional: Positive: Fever, Chills, Fatigue Skin: Positive: Negative Eyes: Positive: Negative ENT: Positive: Sore Throat, Ear Ache Respiratory: Positive: Cough. Negative: Shortness Of Breath Cardiovascular: Negative: Palpitations, Chest Pain Gastrointestinal: Positive: Vomiting Genitourinary: Positive: Negative Motor: Positive: Negative Neurovascular: Positive: Negative Musculoskeletal: Positive: Arthralgia, Myalgia Neurological: Positive: Headache Psychological: Positive: Negative Is Patient Immunocompromised?: No Physical Exam Triage Information Reviewed: Yes Appearance: Ill-Appearing - looks unwell, Pain Distress - mild Vital Signs: Initial Vital Signs Temp 101.6 F 03/18/19 16:07 Pulse 68 03/18/19 16:07 Resp 16 03/18/19 16:07 BP 120/73 03/18/19 16:07 Pulse Ox 100 03/18/19 16:07 Eyes: Positive: Conjunctiva Clear ENT: Positive: Pharyngeal erythema, TMs normal, Tonsillar swelling. Negative: Tonsillar exudate Neck: Positive: Supple, Nontender, No Lymphadenopathy Respiratory: Positive: Lungs clear, Normal breath sounds Cardiovascular: Positive: RRR, No Murmur Musculoskeletal Exam: Normal Neurological Exam: Normal Neurological: Positive: Alert Psychological Exam: Normal Skin Exam: Normal Diagnostics - Laboratory Lab Results: influenza B positive Flu Course/Dx - Course Course Of Treatment: Fluids, rest, ibuprofen for relief of symptoms. - Differential Dx/Diagnosis Differential Diagnosis/HQI/PQRI: Bronchitis, Influenza, Upper Respiratory Infection Provider Diagnosis: Influenza B Discharge ED - Sign-Out/Discharge Documenting (check all that apply): Patient Departure All imaging exams completed and their final reports reviewed: No Studies - Discharge Plan Condition: Stable Disposition: HOME Patient Education Materials: Influenza (ED) Forms: *Work Release Referrals: Naty Bowie MD [Primary Care Provider] - Additional Instructions: For relief of symptoms of flu, take ibuprofen 600mg every 6 hours, and keep up a high intake of fluids. If your fever and achiness is not controlled by that, you can add acetaminophen 1000mg up to 3 times per day. If you develop worsening shortness of breath, have fever persisting beyond 7 days, please follow up for reassessment. - Billing Disposition and Condition Condition: STABLE Disposition: Home
[2019-03-18] MEDS ORDERED: Ibuprofen TAB* 600 MG PO ONE (16:31)
[2019-03-18 16:41] LABS: Influenza A Molecular NEGATIVE (Negative); Influenza B Molecular NEGATIVE (Negative)
== END 2019-03-18 17:09 | disposition home or self-care (01) ==
LOC: UCEAST 15:41
DX: J11.1 Influenza due to unidentified influenza virus with other respiratory manifestations (principal); J45.909 Unspecified asthma, uncomplicated; J02.9 Acute pharyngitis, unspecified; H92.09 Otalgia, unspecified ear; R11.10 Vomiting, unspecified
CPT/HCPCS: 87651; 99212; A9270-GY; G0463

== ENCOUNTER 2019-05-09 18:26 | Emergency (ER) | payer OTHER ==
[2019-05-09 18:30] VITALS: BP 105/76
[2019-05-09] MEDS ORDERED: Lidocaine 2% VISCOUS* 15 ML UDC PO ONE (18:48)
[2019-05-09] MEDS ORDERED: Al Hydrox/Mg Hydrox/Simet LIQ* 30 ML UDC PO ONE (18:48)
--- NOTE | 2019-05-09 18:49 | ED ---
Throat Pain/Nasal Congestion - HPI Summary HPI Summary: 29-year-old female presents dryness to throat for the past couple weeks. She states it is happening all the time. She states she still able to eat and drink. Patient states she drink fluids and it still feels dry. She denies any pain. States does not feel swollen. Denies any chest pain shortness breath. no abdominal pain. No nausea or vomiting. Denies any acid reflux feeling. Denies any history of strep. no medical conditions. She is nonsmoker. - History of Current Complaint Chief Complaint: EDThroatPain Time Seen by Provider: 05/09/19 18:36 - Allergies/Home Medications Allergies/Adverse Reactions: Allergies Allergy/AdvReac Type Severity Reaction Status Date / Time No Known Allergies Allergy Verified 05/09/19 18:30 Home Medications: Home Medications NK [No Home Medications Reported] 05/09/19 [History Confirmed 05/09/19] PMH/Surg Hx/FS Hx/Imm Hx Endocrine/Hematology History: Denies: Hx Diabetes, Hx Thyroid Disease Cardiovascular History: Denies: Hx Hypertension, Other Cardiovascular Problems/Disorders Respiratory History: Reports: Hx Asthma Denies: Hx Chronic Obstructive Pulmonary Disease (COPD) GI History: Denies: Hx Ulcer - Surgical History Surgery Procedure, Year, and Place: Infectious Disease History: No Infectious Disease History: Denies: Hx Clostridium Difficile, Hx Hepatitis, Hx Human Immunodeficiency Virus (HIV), Hx of Known/Suspected MRSA, Hx Shingles, Hx Tuberculosis, Hx Known/ Suspected VRE, Hx Known/Suspected VRSA, History Other Infectious Disease, Traveled Outside the [place] in Last 30 Days - Family History Known Family History: Positive: Other - Hx Kidney stones in mother, Non- Contributory Negative: Hypertension Family History: Hx Kidney stones in mother - Social History Alcohol Use: None Substance Use Type: Reports: None Smoking Status (MU): Never Smoked Tobacco Review of Systems Negative: Fever Positive: Sore Throat Negative: Chest Pain Negative: Shortness Of Breath All Other Systems Reviewed And Are Negative: Yes Physical Exam Triage Information Reviewed: Yes Vital Signs On Initial Exam: Initial Vitals Temp Pulse Resp BP Pulse Ox 97.7 F 92 19 105/76 98 05/09/19 18:27 05/09/19 18:27 05/09/19 18:27 05/09/19 18:27 05/09/19 18:27 Vital Signs Reviewed: Yes Appearance: Positive: Well-Appearing Skin: Positive: Warm, Dry Head/Face: Positive: Normal Head/Face Inspection Eyes: Positive: Normal, EOMI, JULIA, Conjunctiva Clear ENT: Positive: Pharynx normal, TMs normal Neck: Positive: Supple, Nontender, No Lymphadenopathy Respiratory/Lung Sounds: Positive: Clear to Auscultation, Breath Sounds Present Cardiovascular: Positive: Normal, RRR Abdomen Description: Positive: Nontender, Soft Bowel Sounds: Positive: Present Musculoskeletal: Positive: Normal Neurological: Positive: Normal Psychiatric: Positive: Normal Procedures - Sedation Patient Received Moderate/Deep Sedation with Procedure: No Diagnostics - Vital Signs Vital Signs Temp Pulse Resp BP Pulse Ox 05/09/19 18:27 97.7 F 92 19 105/76 98 - Laboratory Lab Statement: Any lab studies that have been ordered have been reviewed, and results considered in the medical decision making process. Re-Evaluation - Re-Evaluation First Eval Re-Evaluation Time: 19:29 Comment: no improvement with gi cocktail EENT Course/Dx - Course Course Of Treatment: 29-year-old female presents dryness to throat for the past couple weeks. She states it is happening all the time. She states she still able to eat and drink. Patient states she drink fluids and it still feels dry. She denies any pain. States does not feel swollen. Denies any chest pain shortness breath. no abdominal pain. No nausea or vomiting. Denies any acid reflux feeling. Denies any history of strep. no medical conditions. She is nonsmoker. On exam pharynx normal. Strep is negative. Gave GI cocktail with no improvement. discussed should drink fluids. told follow up with primary. patient understand and agrees with plan. - Differential Diagnoses Differential Diagnoses: Pharyngitis, Tonsilitis, URI/Bronchitis - Diagnoses Provider Diagnoses: Dry throat Discharge ED - Sign-Out/Discharge Documenting (check all that apply): Patient Departure - Discharge Plan Condition: Good Disposition: HOME Referrals: Naty Bowie MD [Primary Care Provider] - Additional Instructions: drink plenty of fluids follow up with primary Return to ED if develop any new or worsening symptoms - Billing Disposition and Condition Condition: GOOD Disposition: Home - Attestation Statements Provider Attestation: I was available for consultation for this patient. I did not evaluate the patient or participate in any medical decision making or disposition decisions unless I am specifically named in the chart as having consulted on the patient. If I have consulted on the patient, please see my own ED note on the patient encounter. Maya Frias MD
[2019-05-09 19:08] LABS: Rapid Strep Molecular Negative (Negative)
== END 2019-05-09 19:47 | disposition home or self-care (01) ==
LOC: ED 18:26
DX: J39.2 Other diseases of pharynx (principal); J02.9 Acute pharyngitis, unspecified
CPT/HCPCS: 87651; 99282; A9270-GY

== ENCOUNTER 2019-06-06 09:08 | Emergency (ER) | payer OTHER ==
[2019-06-06 10:49] VITALS: BP 123/63
--- NOTE | 2019-06-06 11:09 | UC ---
Eye Complaint HPI - HPI Summary HPI Summary: 29 y/o female presents to the urgent care c/o - History of Current Complaint Chief Complaint: UCGeneralIllness Stated Complaint: SORE THROAT Time Seen by Provider: 06/06/19 11:03 Hx Obtained From: Patient Hx Last Menstrual Period: 05/19/19 Pain Intensity: 8 - Allergies/Home Medications Allergies/Adverse Reactions: Allergies Allergy/AdvReac Type Severity Reaction Status Date / Time No Known Allergies Allergy Verified 06/06/19 10:49 Home Medications: Home Medications NK [No Home Medications Reported] 05/09/19 [History Confirmed 05/09/19] PMH/Surg Hx/FS Hx/Imm Hx - Surgical History Surgical History: Yes Surgery Procedure, Year, and Place: - Family History Known Family History: Positive: Other - Hx Kidney stones in mother, Non- Contributory Negative: Hypertension Family History: Hx Kidney stones in mother - Social History Alcohol Use: None Substance Use Type: None Smoking Status (MU): Never Smoked Tobacco Physical Exam Vital Signs: Initial Vital Signs Temp 97.2 F 06/06/19 10:44 Pulse 65 06/06/19 10:44 Resp 16 06/06/19 10:44 BP 123/63 06/06/19 10:44 Pulse Ox 100 06/06/19 10:44 Discharge ED - Discharge Plan Referrals: Naty Bowie MD [Primary Care Provider] -
--- NOTE | 2019-06-06 11:37 | UC ---
Throat Pain/Nasal [place] HPI - HPI Summary HPI Summary: 29 y/o female presents to the urgent care c/o sore throat w/ tonsils swollen since last night. Pain w/ swallowing is 9/10. She felt chills this morning, but not sure if she had fever. She took Ibuprofen PO 400mg at 0800AM. Pt denies URI symptoms, body aches, SOB, chest pain, abdominal pain, N/V/D. No Hx of travel. She states last year her Rapdi strep was negative and then her throat culture was positive for strep C, she was Rx antibiotics and symptoms resolved. . - History of Current Complaint Chief Complaint: UCGeneralIllness Stated Complaint: SORE THROAT Time Seen by Provider: 06/06/19 11:03 Hx Obtained From: Patient Hx Last Menstrual Period: 05/19/19 ?: No Onset/Duration: Gradual Onset, Lasting Days - 1 day, Still Present, Worse Since - today Severity: Moderate Pain Intensity: 8 - sore throat Pain Scale Used: 0-10 Numeric Cough: None Associated Signs & Symptoms: Positive: Dysphagia, Nasal Discharge - yellowish, Fever - subjective at home. Negative: Wheezing - Epiglottits Risk Factors Epiglottis Risk Factors: Negative - Allergies/Home Medications Allergies/Adverse Reactions: Allergies Allergy/AdvReac Type Severity Reaction Status Date / Time No Known Allergies Allergy Verified 06/06/19 10:49 Home Medications: Home Medications Cephalexin CAP* [Keflex CAP*] 500 mg PO BID #20 cap 06/06/19 [Rx] predniSONE [Prednisone 20 MG TAB] 20 mg PO DAILY #11 tablet 06/06/19 [Rx] PMH/Surg Hx/FS Hx/Imm Hx Previously Healthy: Yes - Pt denies PMHX - Surgical History Surgical History: Yes Surgery Procedure, Year, and Place: - Family History Known Family History: Positive: Other - Hx Kidney stones in mother, Non- Contributory Negative: Hypertension Family History: Hx Kidney stones in mother - Social History Occupation: Employed Full-time Lives: With Family Alcohol Use: None Substance Use Type: None Smoking Status (MU): Never Smoked Tobacco Review of Systems All Other Systems Reviewed And Are Negative: Yes Constitutional: Positive: Fever - subjective at home Skin: Positive: Negative Eyes: Positive: Negative ENT: Positive: Sore Throat, Nasal Discharge - yellowish Respiratory: Positive: Negative Cardiovascular: Positive: Negative Gastrointestinal: Positive: Negative Genitourinary: Positive: Negative Motor: Positive: Negative Neurovascular: Positive: Negative Musculoskeletal: Positive: Negative Neurological/Mental Status: Positive: Negative Psychological: Positive: Negative Is Patient Immunocompromised?: No Physical Exam - Summary Physical Exam Summary: VITAL SIGNS: Reviewed. GENERAL: Patient is a well developed and nourished female who is sitting comfortably in the examining table. Patient is not in any acute respiratory distress. HEAD AND FACE: No signs of trauma. No ecchymosis, hematomas or skull depressions. No sinus tenderness. EYES: PERRLA, EOMI x 2, No injected conjunctiva, no nystagmus. No photophobia. EARS: Hearing grossly intact. Ear canals and tympanic membranes are within normal limits. MOUTH: Positive pharynx with erythema, exudates, palatal petechiae. B/L tonsillar enlargement with exudate. Uvula in midline. NECK: Supple, trachea is midline, Positive anterior cervical lymphadenopathy, no JVD, no carotid bruit, no c-spine tenderness, neck with full ROM. No meningeal signs, no Kernig's or brudzinskis signs. CHEST: Symmetric, no tenderness at palpation LUNGS: Clear to auscultation bilaterally. No wheezing or crackles. CVS: Regular rate and rhythm, S1 and S2 present, no murmurs or gallops appreciated. ABDOMEN: Soft, non-tender. No signs of distention. No rebound no guarding, and no masses palpated. Bowel sounds are normal. EXTREMITIES: FROM in all major joints, no edema, no cyanosis or clubbing. NEURO: Alert and oriented x 3. No acute neurological deficits. Speech is normal and follows commands. SKIN: Dry and warm Triage Information Reviewed: Yes Vital Signs: Initial Vital Signs Temp 97.2 F 06/06/19 10:44 Pulse 65 06/06/19 10:44 Resp 16 06/06/19 10:44 BP 123/63 06/06/19 10:44 Pulse Ox 100 06/06/19 10:44 Throat Pain/Nasal Course/Dx - Course Course Of Treatment: 29 y/o female presents to the urgent care c/o sore throat w/ tonsils swollen since last night. Pain w/ swallowing is 9/10. She felt chills this morning, but not sure if she had fever. She took Ibuprofen PO 400mg at 0800AM. Pt denies URI symptoms, body aches, SOB, chest pain, abdominal pain, N/V/D. No Hx of travel. She states last year her Rapdi strep was negative and then her throat culture was positive for strep C, she was Rx antibiotics and symptoms resolved. Hx obtained. Pt is hemodynamically stable, VS: ENL. Rapid strep ordered, result : negative. Pt w/ acute tonsillitis. Throat culture ordered, Monospot and CBC ordered. Pt will be notified of any abnormality. Pt w/ Hx of Strep C last year after throat culture was done as per records. Pt Rx Keflex PO and Prednisone PO to alleviate symptoms . Advised to take also ibuprofen PO to alleviate symptoms of pain and swelling. Advised on hand washing to avoid spreading. Pt advised to rest, eat well and avoid strenuous exercise. If symptoms do not improve or worsen advised to return to the urgent care or f/u with her PCP in 3 days for further evaluation and treatment. Pt understood and agreed w/ plan of care. - Differential Dx/Diagnosis Differential Diagnosis/HQI/PQRI: Influenza, Laryngitis, Mononucleosis, Pharyngitis, Sinusitis, Tonsillitis, URI Provider Diagnosis: Acute tonsillitis Discharge ED - Sign-Out/Discharge Documenting (check all that apply): Patient Departure All imaging exams completed and their final reports reviewed: No Studies - Discharge Plan Condition: Stable Disposition: HOME Prescriptions: Cephalexin CAP* [Keflex CAP*] 500 mg PO BID #20 cap predniSONE [Prednisone 20 MG TAB] 20 mg PO DAILY #11 tablet Patient Education Materials: Tonsillitis (ED) Forms: *Work Release Referrals: Naty Bowie MD [Primary Care Provider] - 2 Days Additional Instructions: 1- Please take the full course of the antibiotic to avoid resistance.Take yogurts w/ probiotics or Culturelle to protect your GI system 2-Take Prednisone PO as directed to alleviate inflammation 2-Please take ibuprofen PO q6-8hrs prn as instructed after meals to alleviate pain and swelling. Increase fluid intake, eat well, rest and avoid strenuous exercise 3-If symptoms do not improve or worsen please return to the urgent care or f/u with your PCP in 2-3 days for further evaluation and treatment. - Billing Disposition and Condition Condition: STABLE Disposition: Home
[2019-06-06 14:51] LABS: ABS Eosinophils 0.1 10^3/ul (0-0.6); ABS Lymphocytes 1.4 10^3/ul (1.0-4.8); ABS Monocytes 0.3 10^3/ul (0-0.8); ABS Neutrophils 3.4 10^3/ul (1.5-7.7); Eosinophil % 2.3 %; Hematocrit 38 % (35-47); Hemoglobin 12.7 g/dL (12.0-16.0); Mean Corpuscular HGB Conc 33 g/dL (31-36); Mean Corpuscular Hemoglobin 31 pg (27-31); Mean Corpuscular Volume 94 fL (80-97); Mean Platelet Volume 9.8 fL (7.4-10.4); Platelet Count 265 10^3/uL (150-450); Red Blood Count 4.08 10^6 /uL (3.70-4.87); Red Cell Distribution Width 13 % (10-15); White Blood Count 5.3 10^3/uL (3.5-10.8)
[2019-06-07 14:50] LABS: EBV Capsid Ag IgG Ab Positive (Negative); EBV Capsid Ag IgM Ab Negative (Negative); Epstein-Barr Nuclear Antigen Positive (Negative)
== END 2019-06-06 11:55 | disposition home or self-care (01) ==
LOC: UCEAST 09:08
DX: J03.90 Acute tonsillitis, unspecified (principal)
CPT/HCPCS: 36415; 85025; 86308; 86664; 86665; 87070; 87077; 87651; 99212; G0463

== ENCOUNTER 2019-06-09 18:23 | Emergency (ER) | payer OTHER ==
[2019-06-09 18:36] VITALS: BP 108/60
[2019-06-09] MEDS ORDERED: hydrOXYzine HCL TAB* 25 MG PO ONE (18:41)
--- NOTE | 2019-06-09 18:45 | UC ---
Skin Complaint HPI - HPI Summary HPI Summary: 29 yo female with pruritis to head and neck/upper torso x 2 hours on keflex for tonsillitis no f/c no sob - History of Current Complaint Time Seen by Provider: 06/09/19 18:25 Stated Complaint: ALLERGIC REACTION Hx Obtained From: Patient Hx Last Menstrual Period: 05/20/19 Onset/Duration: Gradual Onset, Lasting Hours Timing: Constant Onset Severity: Severe Pain Intensity: 8 - itching Pain Scale Used: 0-10 Numeric Location: Other - see HPI Character: Pruritus, Hives Aggravating Factor(s): Nothing Alleviating Factor(s): Nothing Associated Signs & Symptoms: Positive: Rash Related History: Recent change in medication - Allergy/Home Medications Allergies/Adverse Reactions: Allergies Allergy/AdvReac Type Severity Reaction Status Date / Time No Known Allergies Allergy Verified 06/09/19 18:36 Home Medications: Home Medications Cephalexin CAP* [Keflex CAP*] 500 mg PO BID #20 cap 06/06/19 [Rx Confirmed 06/08] predniSONE [Prednisone 20 MG TAB] 20 mg PO DAILY #11 tablet 06/06/19 [Rx Confirmed 06/09/19] hydrOXYzine HCL TAB* [Atarax 25 MG TAB*] 25 mg PO QID PRN #12 tab 06/09/19 [Rx] predniSONE 20 mg TAB [Deltasone 20 MG TAB*] 40 mg PO DAILY #4 tab 06/09/19 [Rx] PMH/Surg Hx/FS Hx/Imm Hx Previously Healthy: Yes Respiratory History: Asthma - Surgical History Surgical History: Yes Surgery Procedure, Year, and Place: - Family History Known Family History: Positive: Other - Hx Kidney stones in mother, Non- Contributory Negative: Hypertension Family History: Hx Kidney stones in mother - Social History Alcohol Use: None Substance Use Type: None Smoking Status (MU): Never Smoked Tobacco Review of Systems All Other Systems Reviewed And Are Negative: Yes Constitutional: Positive: Negative Skin: Positive: Rash Eyes: Positive: Negative ENT: Positive: Dental Pain, Sore Throat Respiratory: Positive: Negative Cardiovascular: Positive: Negative Gastrointestinal: Positive: Negative Genitourinary: Positive: Negative Motor: Positive: Negative Neurovascular: Positive: Negative Musculoskeletal: Positive: Negative Neurological/Mental Status: Positive: Negative Psychological: Positive: Negative Physical Exam Triage Information Reviewed: Yes Appearance: Well-Appearing, No Pain Distress, Well-Nourished Vital Signs: Initial Vital Signs Temp 99.1 F 06/09/19 18:34 Pulse 81 06/09/19 18:34 Resp 18 06/09/19 18:34 BP 108/60 06/09/19 18:34 Pulse Ox 98 06/09/19 18:34 Vital Signs Reviewed: Yes Eyes: Positive: Conjunctiva Clear ENT: Positive: Hearing grossly normal, Pharyngeal erythema, Tonsillar swelling, Uvula midline. Negative: Nasal congestion, Nasal drainage, Trismus, Muffled voice, Hoarse voice, Sinus tenderness Dental Exam: Normal Neck: Positive: Supple, Nontender, Enlarged Nodes @ - ant cerv Respiratory: Positive: Lungs clear, Normal breath sounds, No respiratory distress, No accessory muscle use Cardiovascular: Positive: RRR, No Murmur Abdomen Description: Positive: Nontender. Negative: CVA Tenderness (R), CVA Tenderness (L) Bowel Sounds: Positive: Present Musculoskeletal: Positive: ROM Intact, No Edema Neurological: Positive: Alert Psychological Exam: Normal Skin Exam: Normal Course/Dx - Diagnoses Provider Diagnosis: Allergic reaction caused by a drug Discharge ED - Sign-Out/Discharge Documenting (check all that apply): Patient Departure All imaging exams completed and their final reports reviewed: No Studies - Discharge Plan Condition: Stable Disposition: HOME Prescriptions: hydrOXYzine HCL TAB* [Atarax 25 MG TAB*] 25 mg PO QID PRN #12 tab PRN Reason: Itching predniSONE 20 mg TAB [Deltasone 20 MG TAB*] 40 mg PO DAILY #4 tab Patient Education Materials: Antibiotic Medication Allergy (ED) Referrals: Naty Bowie MD [Primary Care Provider] - Additional Instructions: I suspect your allergy is to keflex your throat culture was negative- stop the keflex take 2 20mg prednisone every AM until finished recheck in 4 days if not better recheck sooner for worsening symptoms - Billing Disposition and Condition Condition: STABLE Disposition: Home
== END 2019-06-09 19:09 | disposition home or self-care (01) ==
LOC: UCEAST 18:23
DX: L29.9 Pruritus, unspecified (principal); T36.1X5A Adverse effect of cephalosporins and other beta-lactam antibiotics, initial encounter; Y92.9 Unspecified place or not applicable
CPT/HCPCS: 99212; A9270-GY; G0463; J7512